=== PATIENT | male | born 1985 | race African-American/Black ===

== ENCOUNTER 2024-07-10 08:36 | Emergency (ER) | payer OTHER ==
[~2024-07-10] VITALS: Ht 177.8 cm; Wt 70.0 kg
[2024-07-10] MEDS: MAALOX PLUS or MAALOX 30 ML PO ONE (08:58)
[2024-07-10 09:04] LABS: Urine Bacteria None Seen /hpf (None Seen)
[2024-07-10 09:07] VITALS: TEMP 98.6
[2024-07-10 09:18] LABS: Basophils # (auto) 0.1 10 ^3/uL (0-0.2); Basophils % (auto) 0.8 % (0.0-2.0); Eosinophils # (auto) 0.5 10 ^3/uL (0-0.8); Eosinophils % (auto) 7.4 % (0.0-7.0); Hematocrit 43.6 % (41.0-53.0); Hemoglobin 14.2 g/dL (13.5-17.5); Lymphocytes # (auto) 1.1 10 ^3/uL (0.4-5.4); Lymphocytes % (auto) 16.7 % (10.0-50.0); Mean Corpuscular Hemoglobin 27.7 pg (28.0-32.0); Mean Corpuscular Hgb Conc. 32.5 g/dL (32.0-36.0); Mean Corpuscular Volume 85.2 fL (80.0-100.0); Monocytes # (auto) 0.4 10 ^3/uL (0-1.3); Monocytes % (auto) 5.4 % (0.0-12.0); Neutrophils # (auto) 4.7 10 ^3/uL (1.6-8.6); Neutrophils % (auto) 69.7 % (37.0-80.0); Platelet Count (auto) 284 10^3/uL (140-450); Red Blood Cells 5.12 10^6/uL (4.5-5.90); Red Cell Distribution Width 14.4 % (11.8-14.3); White Blood Cell 6.8 10^3/uL (4.4-10.8)
[2024-07-10 09:23] LABS: Urine Amorphous Crystal FEW /hpf (None Seen); Urine Blood 1+ /uL (Negative); Urine Clarity Ex.Turbid (Clear); Urine Color Yellow (Yellow); Urine Mucus FEW (None Seen); Urine Protein, UAD Negative (Negative); Urine Specific Gravity 1.019 (1.001-1.035); Urine Squamous Epithelial Cell None Seen /hpf (<5); Urine Urobilinogen Normal (Negative)
[2024-07-10 09:24] LABS: Urine WBC < 1 /HPF (0-3)
--- NOTE | 2024-07-10 09:27 | DVH ---
Procedure: CT CT AB PEL WO CON-NO ORAL OR IV 07/10/2024 08:45 AM Indication: epigastric pain, family history of pancreatic cancer Comparison Study: None Technique: Axial images were obtained and reformatted in coronal and sagittal planes. All CT scans at this medical facility are performed using dose modulation techniques as appropriate to a performed e xam including the following: Automated exposure control was utilized; adjustment of the MA and/or KV according to patient size; and use of iterative reconstruction technique. CT Dose: CTDI volume is 6.7 5 mGy. Dose-length product is 329.75 mGy*cm FINDINGS: Lower Chest: Unremarkable. Hepatobiliary: Liver is normal in size. Few subcentimeter hypodense foci noted in the right and left hepatic lobes that are incompletely evaluated due to small-sized without IV contrast. No intrahepat ic or extrahepatic ductal dilatation. No calcified gallstones. Spleen: Unremarkable. Pancreas: Unremarkable. Adrenal Glands: Unremarkable. tract: The kidneys are normal in size bilaterally without hydronephrosis . Dense measure pyramid t ips and few punctate nonobstructing bilateral renal calculi noted. The urinary bladder is unremarkabl e. GI tract: The stomach is grossly normal in appearance. No evidence of small bowel obstruction. The la rge bowel is unremarkable. The appendix is not visualized. No inflammatory change is noted in the rig ht lower quadrant. Lymphatics: No mesenteric, retroperitoneal or periportal lymphadenopathy. Vasculature: The abdominal aorta is normal in in caliber. Pelvic Organs: Unremarkable Bones/soft tissues: No acute abnormality. Other: None. IMPRESSION: 1. No CT evidence for acute intra-abdominal or intrapelvic process. 2. Findings suggestive of medullary sponge kidney and few tiny, 1-2 mm nonobstructive bilateral renal calculi. No hydronephrosis. 3. Few subcentimeter hypodense hepatic foci probably cysts. Evaluation is limited due to small size and lack of IV contrast. Suggest correlation with ultrasound on a nonemergent basis. 4. No evidence of pancreatitis. No discrete pancreatic lesion this limited unenhanced study.
--- NOTE | 2024-07-10 09:30 | ED.PDOC ---
GI ASSESSMENT HPI Comments 38 year old male brought in by EMS presents to the ED with a chief complaint of intermittent abdominal pain onset 1 month. Patient states he has been experiencing intermittent diffused abdominal pain for the past month, noticed pain worsen last night, described as a sharp, stabbing pain and began experiencing nausea. Patient stopped consuming ETOH about 1 month ago when pain began. He noticed pain worsens with certain foods and drinks. He is concerned due to family history of Pancreatic cancer. Denies PMHx as well as chest pain, shortness of breath, vomiting, diarrhea, headache, dizziness, dysuria, hematuria, fever, chills. No other symptoms or modifying factors present at this time. Chief Complaint: Abdominal Pain Time Seen by MD: 09:02 Primary Care Provider: LORENA Whitehead Notes: Medications, Allergies Allergies: Coded Allergies: NO KNOWN ALLERGIES (Unverified , 07/10/24) Information Source: Patient, Emergency Med Personnel Mode of Arrival: EMS Timing: Months Duration: Intermittent Prehospital treatment: None Quality: Sharp, Stabbing Vomitus: None Severity: Moderate Recent: None Recent Hx of: None Modifying Factors: Nothing Associated sign and symptoms: Nausea, Abdominal Pain Past Medical History PAST MEDICAL HISTORY: Denies Surgical History: Denies all surgeries Family History Family History: Family hx of Cancer Social History Smoker: Non-Smoker Alcohol: Heavy Drugs: Marijuana Lives In: Home Constitutional: denies: chills, diaphoresis, fatigue, fever, malaise, sweats, weakness, others EENTM: denies: blurred vision, double vision, ear bleeding, ear discharge, ear drainage, ear pain, ear ringing, eye pain, eye redness, hearing loss, mouth pain, mouth swelling, nasal discharge, nose bleeding, nose congestion, nose pain, photophobia, tearing, throat pain, throat swelling, voice changes, others Respiratory: denies: cough, hemoptysis, orthopnea, SOB at rest, shortness of breath, SOB with excertion, stridor, wheezing, others Cardiovascular: denies: chest pain, dizzy spells, diaphoresis, Dyspnea on exertion, edema, irregular heart beat, left arm pain, lightheadedness, palpitations, PND, syncope, others Gastrointestinal: reports: abdominal pain, nausea; denies: abdomen distended, blood streaked bowels, constipated, diarrhea, dysphagia, difficulty swallowing, hematemesis, melena, poor appetite, poor fluid intake, rectal bleeding, rectal pain, vomiting, others Genitourinary: denies: burning, dysuria, flank pain, frequency, hematuria, incontinence, penile discharge, penile sore, pain, testicle pain, testicle swelling, urgency, others Neurological: denies: dizziness, fainting, headache, left sided numbness, left sided weakness, numbness, paresthesia, pre-existing deficit, right sided numbness, right sided weakness, seizure, speech problems, tingling, tremors, weakness, others Musculoskeletal: denies: back pain, gout, joint pain, joint swelling, muscle pain, muscle stiffness, neck pain, others Integumetry: denies: bruises, change in color, change in hair/nails, dryness, laceration, lesions, lumps, rash, wounds, others Allergic/Immunocompromised: denies: Difficulty Healing, Frequent Infections, Hives, Itching, others Hematologic/Lymphatic: denies: anemia, blood clots, easy bleeding, easy bruising, swollen glands, others Endocrine: denies: excessive hunger, excessive sweating, excessive thirst, excessive urination, flushing, intolerance to cold, intolerance to heat, unexplained weight gain, unexplained weight loss, others Psychiatric: denies: anxiety, bipolar disorder, depression, hopeless, panic disorder, schizophrenia, sleepless, suicidal, others All Other Systems: Reviewed and Negative Physical Exam General Appearance: No Apparent Distress, Normal HEENT: Normal ENT Inspection, Pharynx Normal, TMs Normal Neck: Full Range of Motion, Non-Tender, Normal, Normal Inspection Respiratory: Chest Non-Tender, Lungs Clear, No Accessory Muscle Use, No Respiratory Distress, Normal Breath Sounds Cardiovascular: No Edema, No JVD, No Murmur, No Gallop, Normal Peripheral Pulses, Regular Rate/Rhythm Breast Exam: Deferred Gastrointestinal: Epigastric (tenderness), No Organomegaly, No Pulsatile Mass, Normal Bowel Sounds, Tenderness (epigastric ) Genitalia: Deferred Pelvic: Deferred Rectal: Deferred Extremities: No calf tenderness, Normal capillary refill, Normal inspection, Normal range of motion, Non-tender, No pedal edema Musculoskeletal : Apperance: Normal Neurologic: Alert, 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 Was a procedure done?: No GI differential Dx Differential Diagnosis: Bowel Obstruction, Cholangitis, Cholecystitis, Constipation, Diverticular disease, Gastritis/PUD, Gastroenteritis, Hernia, Hepatitis, Inflammatory BD, Pancreatitis, Impaction, Mass, Stress Ulcer, Kidney Stone X-Ray, Labs, Meds, VS Vital Signs Date Time Temp Pulse Resp B/P (MAP) Pulse Ox O2 Delivery O2 Flow Rate FiO2 07/10/24 09:35 131/91 07/10/24 09:07 74 18 100 Room Air 07/10/24 09:07 98.6 74 18 131/91 (104) 100 98.6 07/10/24 08:45 98.0 74 18 150/100 (117) 99 98.0 Lab Test 07/10/24 09:03 07/10/24 08:55 Range/Units Urine Color Yellow Yellow Urine Clarity Ex.turbid Clear Urine pH 7.0 5.0-9.0 Urine Specific [place] 1.019 1.001-1.035 Urine Protein Negative Negative Urine Ketones Negative Negative Urine Blood 1+ H Negative /uL Urine Nitrite Negative Negative Urine Bilirubin Negative Negative Urine Urobilinogen Normal Negative mg/dL Urine Leukocyte Esterase Negative Negative /uL Urine RBC 40 0 - 3 /hpf Urine Microscopic WBC < 1 0-3 /HPF Urine Squamous Epithelial Cells None seen <5 /hpf Urine Amorphous Crystals Few None Seen /hpf Urine Bacteria None seen None Seen /hpf Urine Mucus Few None Seen Urine Glucose Normal Normal mg/dL White Blood Count 6.8 4.4-10.8 10^3/uL Red Blood Count 5.12 4.5-5.90 10^6/uL Hemoglobin 14.2 13.5-17.5 g/dL Hematocrit 43.6 41.0-53.0 % Mean Corpuscular Volume 85.2 80.0-100.0 fL Mean Corpuscular Hemoglobin 27.7 L 28.0-32.0 pg Mean Corpuscular Hemoglobin Concent 32.5 32.0-36.0 g/dL Red Cell Distribution Width 14.4 H 11.8-14.3 % Platelet Count 284 140-450 10^3/uL Mean Platelet Volume 7.5 6.9-10.8 fL Neutrophils (%) (Auto) 69.7 37.0-80.0 % Lymphocytes (%) (Auto) 16.7 10.0-50.0 % Monocytes (%) (Auto) 5.4 0.0-12.0 % Eosinophils (%) (Auto) 7.4 H 0.0-7.0 % Basophils (%) (Auto) 0.8 0.0-2.0 % Neutrophils # (Auto) 4.7 1.6-8.6 10 ^3/uL Lymphocytes # (Auto) 1.1 0.4-5.4 10 ^3/uL Monocytes # (Auto) 0.4 0-1.3 10 ^3/uL Eosinophils # (Auto) 0.5 0-0.8 10 ^3/uL Basophils # (Auto) 0.1 0-0.2 10 ^3/uL Nucleated Red Blood Cells 0.0 % Sodium Level 139 136-145 mmol/L Potassium Level 4.3 3.5-5.1 mmol/L Chloride Level 104 98-107 mmol/L Carbon Dioxide Level 30 20-31 mmol/L Anion Gap 5 5-15 Blood Urea Nitrogen < 5 L 9-23 mg/dL Creatinine 0.92 0.700-1.30 mg/dL Glomerular Filtration Rate Calc 109 >90 mL/min BUN/Creatinine Ratio 5.4 L 10.0-20.0 Serum Glucose 89 74-106 mg/dL Calcium Level 10.4 8.7-10.4 mg/dL Total Bilirubin 0.4 0.2-1.0 mg/dL Aspartate Amino Transferase (AST) 22 13-40 U/L Alanine Aminotransferase (ALT) 24 7-40 U/L Alkaline Phosphatase 82 46-116 U/L Total Protein 7.8 5.7-8.2 g/dL Albumin 4.8 3.2-4.8 g/dL Lipase 47 12-53 U/L Current Medications Medications (Trade) Dose Ordered Sig/Tim Route Start Time Stop Time Status Last Admin Al Hydrox/Mg Hydrox/Simethicone (Maalox Plus) 15 ml ONCE ONCE PO 07/10/24 09:00 07/10/24 09:01 DC 07/10/24 08:58 Fentanyl Citrate 12.5 mcg ONCE ONCE IV 07/10/24 09:15 07/10/24 09:16 DC 07/10/24 09:35 [place] [id number] Ph: [phone] DIAGNOSTIC IMAGING Diagnostic Imaging Report : [id number] Signed PATIENT: HENRY MCCARTHY ACCT: [id number] UNIT: [id number] : 1985 LOC: ER ROOM / BED: / AGE / SEX: 38 / M ADM STATUS: REG ER SERVICE [id number] ORDERING PHYSICIAN: LISA NETTLES MD PROCEDURE(s): ABPL - CT AB PEL WO CON-NO ORAL OR IV REASON: epigastric pain, family history of pancreatic cancer ORDER NUMBER(s): [id number], ACCESSION NUMBER(s): [id number] Procedure: CT CT AB PEL WO CON-NO ORAL OR IV 07/10/2024 08:45 AM Indication: epigastric pain, family history of pancreatic cancer Comparison Study: None Technique: Axial images were obtained and reformatted in coronal and sagittal planes. All CT scans at this medical facility are performed using dose modulation techniques as appropriate to a performed exam including the following: Automated exposure control was utilized; adjustment of the MA and/or KV according to patient size; and use of iterative reconstruction technique. CT Dose: CTDI volume is 6.75 mGy. Dose-length product is 329.75 mGy*cm FINDINGS: Lower Chest: Unremarkable. Hepatobiliary: Liver is normal in size. Few subcentimeter hypodense foci noted in the right and left hepatic lobes that are incompletely evaluated due to small-sized without IV contrast. No intrahepatic or extrahepatic ductal dilatation. No calcified gallstones. Spleen: Unremarkable. Pancreas: Unremarkable. Adrenal Glands: Unremarkable. tract: The kidneys are normal in size bilaterally without hydronephrosis . Dense measure pyramid tips and few punctate nonobstructing bilateral renal calculi noted. The urinary bladder is unremarkable. GI tract: The stomach is grossly normal in appearance. No evidence of small bowel obstruction. The large bowel is unremarkable. The appendix is not visualized. No inflammatory change is noted in the right lower quadrant. Lymphatics: No mesenteric, retroperitoneal or periportal lymphadenopathy. Vasculature: The abdominal aorta is normal in in caliber. Pelvic Organs: Unremarkable Bones/soft tissues: No acute abnormality. Other: None. IMPRESSION: 1. No CT evidence for acute intra-abdominal or intrapelvic process. 2. Findings suggestive of medullary sponge kidney and few tiny, 1-2 mm non obstructive bilateral renal calculi. No hydronephrosis. 3. Few subcentimeter hypodense hepatic foci probably cysts. Evaluation is limited due to small size and lack of IV contrast. Suggest correlation with ultrasound on a nonemergent basis. 4. No evidence of pancreatitis. No discrete pancreatic lesion this limited unenhanced study. ATED BY: ALEE COLON MD DICTATED DATE/TIME: 07/10/24923 SIGNED BY: ALEE COLON MD SIGNED DATE/TIME: 07/10/24923 CC: Time of 1ST Reevaluation: 09:32 Reevaluation 1ST: Unchanged Time of 2ND Reevaluation: 10:43 Reevaluation 2ND: Improved Patient Education/Counseling: Diagnosis, Treatment, Prognosis, Need For Follow Up Family Education/Counseling: No Family Present Additional Information The following tests were ordered, and results were reviewed by me: CBC, CMP, LIPASE, CT AB PEL WO CON, UA Additional Information was gathered from interviewing the following independent historians: EMS I reviewed and agreed with the following test results read by other providers: CT AB PEL WO CON I discussed treatment and results with medical personnel and: Patient PT REPORTED A FAMILY HISTORY OF PANCREATIC CANCER AND MORE THAN A MONTH OF EPIGASTRIC PAIN. A CT AND LABS WERE ORDERED AND RESULTS ONLY SHOW MEDULLARY KIDNEY, WITHOUT ANY ACUTE FINDINGS. NO SIGNS OF PANCREATIC CANCER. PT IS STABLE TO FOLLOW UP WITH HIS PCP TOMORROW Departure 1 Departure Time of Disposition: 10:44 Impression: Primary Impression: Abdominal pain Additional Impression: Medullary cystic kidney disease Disposition: HOME / SELF CARE / HOMELESS Condition: Good e-Prescriptions Hydrocodone-Acetaminophen (Hydrocodone Bitartrate/AC 5-325 mg) 1 Tab Tab 1 TAB PO Q12HP PRN for 3 Days, #6 TAB Prov: LISA NETTLES MD 07/10/24 Discharged With: Self Critical Care Note Critical Care Time?: No Stability Stability form required: No I personally scribed for LISA NETTLES MD ([email or web address]) on 07/10/24 at 09:30. Electronically submitted by Michela Rivera ([email or web address]). I personally scribed for LISA NETTLES MD ([email or web address]) on 07/10/24 at 10:09. Electronically submitted by Michela Rivera ([email or web address]). LISA NETTLES MD Jul 10, 2024 09:30
[2024-07-10] MEDS: fentaNYL CITRATE 100 MCG/2 ML VL IV ONE (09:35)
[2024-07-10 09:36] LABS: Alanine Aminotransferase 24 U/L (7-40); Alkaline Phosphatase 82 U/L (46-116); Anion Gap 5 (5-15); Carbon Dioxide 30 mmol/L (20-31); Chloride 104 mmol/L (98-107); Glucose 89 mg/dL (74-106); Potassium 4.3 mmol/L (3.5-5.1); Sodium 139 mmol/L (136-145); Total Protein 7.8 g/dL (5.7-8.2)
[2024-07-10 09:37] LABS: Albumin 4.8 g/dL (3.2-4.8); Aspartate Aminotransferase 22 U/L (13-40); BUN/Creatinine Ratio 5.4 (10.0-20.0); Bilirubin, Total 0.4 mg/dL (0.2-1.0); Blood Urea Nitrogen < 5 mg/dL (9-23); Calcium 10.4 mg/dL (8.7-10.4)
[2024-07-10 10:12] LABS: Lipase 47 U/L (12-53)
[2024-07-10] MEDS ORDERED: HYDR-4902 PO (10:45)
[2024-07-10] MEDS: KETOROLAC TROMETH 30 MG/ML 1ML VIAL IV ONE (10:50)
[2024-07-10 11:01] VITALS: BP 146/106; PULSE 67; RESP 16; O2SAT 100
== END 2024-07-10 11:05 | disposition home or self-care (01) ==
LOC: EDSEX 08:36 → EDBD 08:36 → ER 08:36
DX: Q61.5 Medullary cystic kidney (principal); R10.84 Generalized abdominal pain
CPT/HCPCS: 36415; 74176; 80053; 81001; 83690; 85025; 96374; 96375; 99285; J1885; J3010

== ENCOUNTER 2024-09-22 06:14 | Inpatient (IN) | payer OTHER ==
[~2024-09-22] VITALS: Ht 190.5 cm; Wt 71.2 kg
[~2024-09-22 06:14] MED LIST: HYDR-4902 PO
--- NOTE | 2024-09-22 06:50 | ED.PDOC ---
HPI Comments 38 y.o male presents to the ED for a chief complaint of substernal chest pain associated with nausea and vomiting that started one day ago. Patient reports being seen at [facility] yesterday, was offloaded by EMS and eloped due to wait time. Patient then presented to this ED earlier this morning for same complaint and eloped once again. Patient returned home, states vomiting and chest pain has been persistent with no alleviating factors. Patient has no pain radiating, fever, chills, leg swelling, back/abdominal pain or SOB. Patient admits to tobacco, marijuana and alcohol use. Chief Complaint: Nausea/Vomiting Time Seen by MD: 06:28 Primary Care Provider: LORENA Whitehead Notes: Nurses Notes, Medications, Allergies Allergies: Coded Allergies: NO KNOWN ALLERGIES (Unverified , 07/10/24) Home Meds Active Scripts Hydrocodone-Acetaminophen (Hydrocodone Bitartrate/AC 5-325 mg) 1 Tab Tab, 1 TAB PO Q12HP PRN for 3 Days, #6 TAB Prov:LISA NETTLES MD 07/10/24 Information Source: Patient Mode of Arrival: Ambulatory Severity: Moderate Timing: Days (1) Duration: Since onset Location: Substernal Radiation: No Radiation Quality: Sharp Onset: At Rest Cardiac Risk Factors: Smoker PE Risk Factors: None History of: None Modifying Factors: Nothing Associated Signs and Symptoms: N/V Past Medical History PAST MEDICAL HISTORY: Denies Surgical History: Denies all surgeries Family History Family History: Family hx of Cancer Social History Smoker: Cigarettes, Less Than 1 Pack/Day Alcohol: Heavy Drugs: Marijuana Lives In: Home Constitutional: denies: chills, diaphoresis, fatigue, fever, malaise, sweats, weakness, others EENTM: denies: blurred vision, double vision, ear bleeding, ear discharge, ear drainage, ear pain, ear ringing, eye pain, eye redness, hearing loss, mouth pain, mouth swelling, nasal discharge, nose bleeding, nose congestion, nose frank n, photophobia, tearing, throat pain, throat swelling, voice changes, others Respiratory: denies: cough, hemoptysis, orthopnea, SOB at rest, shortness of breath, SOB with excertion, stridor, wheezing, others Cardiovascular: reports: chest pain; denies: dizzy spells, diaphoresis, Dyspnea on exertion, edema, irregular heart beat, left arm pain, lightheadedness, palpitations, PND, syncope, others Gastrointestinal: reports: hematemesis, nausea, vomiting; denies: abdomen distended, abdominal pain, blood streaked bowels, constipated, diarrhea, dysphagia, difficulty swallowing, melena, poor appetite, poor fluid intake, rectal bleeding, rectal pain, others Genitourinary: denies: burning, dysuria, flank pain, frequency, hematuria, incontinence, penile discharge, penile sore, pain, testicle pain, testicle swelling, urgency, others Neurological: denies: dizziness, fainting, headache, left sided numbness, left sided weakness, numbness, paresthesia, pre-existing deficit, right sided numbness, right sided weakness, seizure, speech problems, tingling, tremors, weakness, others Musculoskeletal: denies: back pain, gout, joint pain, joint swelling, muscle pain, muscle stiffness, neck pain, others Integumetry: denies: bruises, change in color, change in hair/nails, dryness, laceration, lesions, lumps, rash, wounds, others Allergic/Immunocompromised: denies: Difficulty Healing, Frequent Infections, Hi ves, Itching, others Hematologic/Lymphatic: denies: anemia, blood clots, easy bleeding, easy bruising, swollen glands, others Endocrine: denies: excessive hunger, excessive sweating, excessive thirst, excessive urination, flushing, intolerance to cold, intolerance to heat, unexplained weight gain, unexplained weight loss, others Psychiatric: denies: anxiety, bipolar disorder, depression, hopeless, panic disorder, schizophrenia, sleepless, suicidal, others All Other Systems: Reviewed and Negative Physical Exam General Appearance: Moderate Distress HEENT: Normal ENT Inspection, Pharynx Normal, TMs Normal Neck: Full Range of Motion, Non-Tender, Normal, Normal Inspection Respiratory: Chest Non-Tender, Lungs Clear, No Accessory Muscle Use, No Respiratory Distress, Normal Breath Sounds Cardiovascular: No Edema, No JVD, No Murmur, No Gallop, Normal Peripheral Pulses, Regular Rate/Rhythm Breast Exam: Deferred Gastrointestinal: No Organomegaly, Non Tender, No Pulsatile Mass, Normal Bowel Sounds, Soft Genitalia: Deferred Pelvic: Deferred Rectal: Deferred Extremities: No calf tenderness, Normal capillary refill, Normal inspection, Normal range of motion, Non-tender, No pedal edema Musculoskeletal : Apperance: Normal Neurologic: Alert, 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 Was a procedure done?: No CP Differential Dx Differential Diagnosis: A-fib, A-Flutter, Angina, Anxiety / Panic Attack, Atrial Dysrhythmia, Electrolyte Disorder, N/A Differential Diagnosis: Angina, Chest Wall Pain, Costochondritis, Esophageal reflux/spasm, Pericarditis X-Ray, Labs, Meds, VS Vital Signs Date Time Temp Pulse Resp B/P (MAP) Pulse Ox O2 Delivery O2 Flow Rate FiO2 09/22/24 09:38 100 18 163/103 (123) 97 09/22/24 09:38 100 18 98 Room Air 09/22/24 06:44 98.9 94 18 127/93 (104) 97 98.9 Lab Test 09/22/24 06:51 Range/Units White Blood Count 11.9 H 4.4-10.8 10^3/uL Red Blood Count 5.73 4.5-5.90 10^6/uL Hemoglobin 15.9 13.5-17.5 g/dL Hematocrit 48.1 41.0-53.0 % Mean Corpuscular Volume 83.9 80.0-100.0 fL Mean Corpuscular Hemoglobin 27.7 L 28.0-32.0 pg Mean Corpuscular Hemoglobin Concent 33.0 32.0-36.0 g/dL Red Cell Distribution Width 15.6 H 11.8-14.3 % Platelet Count 314 140-450 10^3/uL Mean Platelet Volume 7.9 6.9-10.8 fL Neutrophils (%) (Auto) 79.1 37.0-80.0 % Lymphocytes (%) (Auto) 12.2 10.0-50.0 % Monocytes (%) (Auto) 8.5 0.0-12.0 % Eosinophils (%) (Auto) 0.1 0.0-7.0 % Basophils (%) (Auto) 0.1 0.0-2.0 % Neutrophils # (Auto) 9.4 H 1.6-8.6 10 ^3/uL Lymphocytes # (Auto) 1.4 0.4-5.4 10 ^3/uL Monocytes # (Auto) 1.0 0-1.3 10 ^3/uL Eosinophils # (Auto) 0 0-0.8 10 ^3/uL Basophils # (Auto) 0 0-0.2 10 ^3/uL Nucleated Red Blood Cells 0.1 % Sodium Level 141 136-145 mmol/L Potassium Level 3.4 L 3.5-5.1 mmol/L Chloride Level 102 98-107 mmol/L Carbon Dioxide Level 27 20-31 mmol/L Anion Gap 12 5-15 Blood Urea Nitrogen 11 9-23 mg/dL Creatinine 1.11 0.700-1.30 mg/dL Glomerular Filtration Rate Calc 87 >90 mL/min BUN/Creatinine Ratio 9.9 L 10.0-20.0 Serum Glucose 136 H 74-106 mg/dL Calcium Level 11.3 H 8.7-10.4 mg/dL Troponin I High Sensitivity 3 L </=54 ng/L Patient alert. Complaining of coughing up blood. Vitals stable. Answering questions. Cardiac marker within normal limits. Blood sugar slightly elevated. Potassium is low. Establish intravenous access. Was given fluids. WBC slightly elevated. He has a anemia. He does smoke cigarettes. Counseled patient on effects of smoking cigarettes for 15 minutes. Explained to the patient that he will be admitted for possible endoscope. Continue monitoring. EKG reviewed does not show any acute changes. CT ABDOMEN AND PELVIS WITHOUT CONTRAST CLINICAL HISTORY: pain TECHNIQUE: Multiple contiguous axial images of the abdomen and pelvis without intravenous contrast. The images were reformatted degenerate coronal and sagittal reconstructions. All CT scans at this medical facility are performed using dose modulation techniques as appropriate to a performed exam including the following:Automated exposure control was utilized; adjustment of the MA and/or KV according to patient size; and use of iterative reconstruction technique. Radiation Dose Information: CT Dose: CTDI volume is 6 mGy. Dose-length product is 277 mGy*cm Comparison: CT CT AB PEL WO CON-NO ORAL OR IV on DOS: 07/10/24 FINDINGS: Evaluation of the abdomen and pelvis is limited without intravenous contrast. The liver, gallbladder, pancreas, kidneys, adrenal glands, and spleen grossly appear within normal limits. There is no gross evidence of abdominal lymphadenopathy. There is no free fluid or free air. The stomach grossly appears unremarkable. The small and large bowel loops demonstrate normal caliber and distribution. The appendix is not seen in the right lower quadrant abdomen. There are no secondary signs of acute appendicitis. The abdominal aorta and IVC appear within normal limits. Bladder is decompressed limiting evaluation. Pelvic organ appears within normal limits. There is no gross evidence of a pelvic mass. There is no free fluid collection. Lung bases are clear. There is no acute osseous abnormality. IMPRESSION: 1. There is no acute process in the abdomen and pelvis. HS:Y T RADIOGRAPH Indication: sob Technique: Single frontal view of the chest was obtained Comparison: None FINDINGS: Lines and Tubes: None Lungs: No focal consolidation. Pleura: No effusion. No pneumothorax. Cardiomediastinal contours: Unremarkable Bones: No acute osseous abnormality. IMPRESSION: 1. No acute cardiopulmonary disease. ATED BY: AMIE AQUINO MD Time of 1ST Reevaluation: 06:46 Reevaluation 1ST: Unchanged Patient Education/Counseling: Diagnosis, Treatment, Prognosis Family Education/Counseling: No Family Present Departure 1 Departure Time of Disposition: 08:16 Impression: Primary Impression: Pneumonitis Additional Impressions: Uncontrolled diabetes mellitus Qualified Codes: E13.65 - Other specified diabetes mellitus with hyperglycemia Hypokalemia GI bleed Qualified Codes: K92.2 - Gastrointestinal hemorrhage, unspecified Disposition: ADMITTED INPATIENT Admit to: Med Surg Condition: Guarded Critical Care Note Critical Care Time?: Yes (90 min-critical care time only) Critical care comment: Monitor for any bleeding Stability Stability form required: No Heart Score Heart Score: Heart Score Response (Comments) Value History Slightly Suspicious 0 EKG Normal 0 Age <45 0 Risk Factors No known risk factors 0 Troponin Normal limit 0 Total 0 I personally scribed for PAM PHILIP MD ([email or web address]) on 09/22/24 at 06:49. Electronically submitted by Katie Tineo ([email or web address]). I personally scribed for PAM PHILIP MD ([email or web address]) on 09/22/24 at 09:44. Electronically submitted by Katie Tineo ([email or web address]). PAM PHILIP MD Sep 22, 2024 06:49
--- NOTE | 2024-09-22 07:16 | DVH ---
CHEST RADIOGRAPH Indication: sob Technique: Single frontal view of the chest was obtained Comparison: None FINDINGS: Lines and Tubes: None Lungs: No focal consolidation. Pleura: No effusion. No pneumothorax. Cardiomediastinal contours: Unremarkable Bones: No acute osseous abnormality. IMPRESSION: 1. No acute cardiopulmonary disease.
[2024-09-22 07:20] LABS: Basophils # (auto) 0 10 ^3/uL (0-0.2); Basophils % (auto) 0.1 % (0.0-2.0); Eosinophils # (auto) 0 10 ^3/uL (0-0.8); Eosinophils % (auto) 0.1 % (0.0-7.0); Hematocrit 48.1 % (41.0-53.0); Hemoglobin 15.9 g/dL (13.5-17.5); Lymphocytes # (auto) 1.4 10 ^3/uL (0.4-5.4); Lymphocytes % (auto) 12.2 % (10.0-50.0); Mean Corpuscular Hemoglobin 27.7 pg (28.0-32.0); Mean Corpuscular Volume 83.9 fL (80.0-100.0); Monocytes % (auto) 8.5 % (0.0-12.0); Neutrophils # (auto) 9.4 10 ^3/uL (1.6-8.6); Neutrophils % (auto) 79.1 % (37.0-80.0); Nucleated Red Blood Cells % 0.1 %; Platelet Count (auto) 314 10^3/uL (140-450); Red Blood Cells 5.73 10^6/uL (4.5-5.90); Red Cell Distribution Width 15.6 % (11.8-14.3); White Blood Cell 11.9 10^3/uL (4.4-10.8)
[2024-09-22 07:25] LABS: Chloride 102 mmol/L (98-107); Sodium 141 mmol/L (136-145)
[2024-09-22 07:26] LABS: Anion Gap 12 (5-15); Carbon Dioxide 27 mmol/L (20-31)
[2024-09-22 07:31] LABS: BUN/Creatinine Ratio 9.9 (10.0-20.0); Blood Urea Nitrogen 11 mg/dL (9-23)
[2024-09-22 07:32] LABS: Calcium 11.3 mg/dL (8.7-10.4); Glucose 136 mg/dL (74-106); Potassium 3.4 mmol/L (3.5-5.1)
--- NOTE | 2024-09-22 09:24 | DVH ---
CT ABDOMEN AND PELVIS WITHOUT CONTRAST CLINICAL HISTORY: pain TECHNIQUE: Multiple contiguous axial images of the abdomen and pelvis without intravenous contrast. T he images were reformatted degenerate coronal and sagittal reconstructions. All CT scans at this medical facility are performed using dose modulation techniques as appropriate t o a performed exam including the following:Automated exposure control was utilized; adjustment of the MA and/or KV according to patient size; and use of iterative reconstruction technique. Radiation Dose Information: CT Dose: CTDI volume is 6 mGy. Dose-length product is 277 mGy*cm Comparison: CT CT AB PEL WO CON-NO ORAL OR IV on DOS: 07/10/24 FINDINGS: Evaluation of the abdomen and pelvis is limited without intravenous contrast. The liver, gallbladder, pancreas, kidneys, adrenal glands, and spleen grossly appear within normal limits. There is no gross evidence of abdominal lymphadenopathy. There is no free fluid or free air. The stomach grossly appears unremarkable. The small and large bowel loops demonstrate normal caliber and distribution. The appendix is not seen in the right lower quadrant abdomen. There are no seconda ry signs of acute appendicitis. The abdominal aorta and IVC appear within normal limits. Bladder is decompressed limiting evaluation. Pelvic organ appears within normal limits. There is no gross evidence of a pelvic mass. There is no free fluid collection. Lung bases are clear. There is no acute osseous abnormality. IMPRESSION: 1. There is no acute process in the abdomen and pelvis. HS:Y
[2024-09-22 10:00] VITALS: PULSE 87; RESP 13; O2SAT 99
[2024-09-22] MEDS ORDERED: NITROGLYCERIN 0.4 MG SL TAB SL PRN ×2 (10:00)
[2024-09-22] MEDS ORDERED: MORPHINE SULFATE INJ 2 MG/ml SYRG IV PRN (10:00)
[2024-09-22] MEDS ORDERED: MORPHINE SULFATE 4 MG/ML SYR/VIAL IV PRN (10:00)
[2024-09-22] MEDS: POTASSIUM CHL 20 Meq TABLET PO ONE (10:02)
--- NOTE | 2024-09-22 10:33 | DVHHP2 ---
History of Present Illness Reason for Visit: Chest pain with nausea and vomiting History of Present Illness Renu Turner is a 38-year-old male with past medical history of eczema and psoriasis who presents to the ED with chest pain, nausea, and vomiting that started since Friday night. Patient states that the pain is 8/10 stabbing and constant like. 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 Patient also reports [place] [facility] [place] but was waiting too long and decided to elope. Patient denies any recent trauma, recent sick contacts, shortness of breath, fever, chills, lightheadedness, weakness, dizziness, or abdominal pain. Past Medical History Eczema Psoriasis Past Surgical History: None Family History: Hypertension, Other (Mom with diabetes and dad ) Smoke: <1 pack per day (Cigar) ALCOHOL: occassional Drugs: Marijuana Lives: with Family Domestic Violence: Neg Review of Systems Cardiovascular: Chest Pain Gastrointestinal: Nausea, Vomiting, Other (Hematemesis) Allergies: Coded Allergies: NO KNOWN ALLERGIES (Unverified , 07/10/24) Exam Vital Signs Vital Signs Date Time Temp Pulse Resp B/P (MAP) Pulse Ox O2 Delivery O2 Flow Rate FiO2 09/22/24 09:38 100 18 163/103 (123) 97 09/22/24 09:38 Room Air 09/22/24 06:44 98.9 98.9 General Appearance: Alert, Oriented X3, Cooperative, No acute distress HEENT: Atraumatic, PERRLA, EOMI, Mucous membr. moist/pink Respiratory: Clear to auscultation, Normal air movement Cardiovascular: Regular rate, Normal S1, Normal S2, No murmurs Abdominal: Normal bowel sounds, Soft Extremities: No cyanosis, No edema, Normal pulses Skin: No significant lesion Neuro: Normal gait, Normal speech, Strength at 5/5 X4 ext, Normal tone, Sensation intact Psych/Mental Status: Mental status NL, Mood NL Labs/Xrays Labs Test 09/22/24 06:51 Range/Units White Blood Count 11.9 H 4.4-10.8 10^3/uL Red Blood Count 5.73 4.5-5.90 10^6/uL Hemoglobin 15.9 13.5-17.5 g/dL Hematocrit 48.1 41.0-53.0 % Mean Corpuscular Volume 83.9 80.0-100.0 fL Mean Corpuscular Hemoglobin 27.7 L 28.0-32.0 pg Mean Corpuscular Hemoglobin Concent 33.0 32.0-36.0 g/dL Red Cell Distribution Width 15.6 H 11.8-14.3 % Platelet Count 314 140-450 10^3/uL Mean Platelet Volume 7.9 6.9-10.8 fL Neutrophils (%) (Auto) 79.1 37.0-80.0 % Lymphocytes (%) (Auto) 12.2 10.0-50.0 % Monocytes (%) (Auto) 8.5 0.0-12.0 % Eosinophils (%) (Auto) 0.1 0.0-7.0 % Basophils (%) (Auto) 0.1 0.0-2.0 % Neutrophils # (Auto) 9.4 H 1.6-8.6 10 ^3/uL Lymphocytes # (Auto) 1.4 0.4-5.4 10 ^3/uL Monocytes # (Auto) 1.0 0-1.3 10 ^3/uL Eosinophils # (Auto) 0 0-0.8 10 ^3/uL Basophils # (Auto) 0 0-0.2 10 ^3/uL Nucleated Red Blood Cells 0.1 % Sodium Level 141 136-145 mmol/L Potassium Level 3.4 L 3.5-5.1 mmol/L Chloride Level 102 98-107 mmol/L Carbon Dioxide Level 27 20-31 mmol/L Anion Gap 12 5-15 Blood Urea Nitrogen 11 9-23 mg/dL Creatinine 1.11 0.700-1.30 mg/dL Glomerular Filtration Rate Calc 87 >90 mL/min BUN/Creatinine Ratio 9.9 L 10.0-20.0 Serum Glucose 136 H 74-106 mg/dL Calcium Level 11.3 H 8.7-10.4 mg/dL Troponin I High Sensitivity 3 L </=54 ng/L CT ABDOMEN AND PELVIS WITHOUT CONTRAST CLINICAL HISTORY: pain TECHNIQUE: Multiple contiguous axial images of the abdomen and pelvis without intravenous contrast. The images were reformatted degenerate coronal and sagittal reconstructions. All CT scans at this medical facility are performed using dose modulation techniques as appropriate to a performed exam including the following:Automated exposure control was utilized; adjustment of the MA and/or KV according to patient size; and use of iterative reconstruction technique. Radiation Dose Information: CT Dose: CTDI volume is 6 mGy. Dose-length product is 277 mGy*cm Comparison: CT CT AB PEL WO CON-NO ORAL OR IV on DOS: 07/10/24 FINDINGS: Evaluation of the abdomen and pelvis is limited without intravenous contrast. The liver, gallbladder, pancreas, kidneys, adrenal glands, and spleen grossly appear within normal limits. There is no gross evidence of abdominal lymphadenopathy. There is no free fluid or free air. The stomach grossly appears unremarkable. The small and large bowel loops demonstrate normal caliber and distribution. The appendix is not seen in the right lower quadrant abdomen. There are no secondary signs of acute appendicitis. The abdominal aorta and IVC appear within normal limits. Bladder is decompressed limiting evaluation. Pelvic organ appears within normal limits. There is no gross evidence of a pelvic mass. There is no free fluid collection. Lung bases are clear. There is no acute osseous abnormality. IMPRESSION: 1. There is no acute process in the abdomen and pelvis. CHEST RADIOGRAPH Indication: sob Technique: Single frontal view of the chest was obtained Comparison: None FINDINGS: Lines and Tubes: None Lungs: No focal consolidation. Pleura: No effusion. No pneumothorax. Cardiomediastinal contours: Unremarkable Bones: No acute osseous abnormality. IMPRESSION: 1. No acute cardiopulmonary disease. Assessment/Plan Assessment/Plan Assessment Chest pain rule out ACS likely due to substance abuse Tobacco use Marijuana use Alcohol use Leukocytosis Hypokalemia History of asthma History of psoriasis Plan Admit to [facility] IV antibiotics-Zosyn CT abdomen and pelvis Stool OB UA UDS Echo ordered TSH Lipid panel A1c Mag level Mag replaced Diet Per patient no home medications that he takes aside from Dupixent injectables once every 2 weeks DVT prophylaxis-not indicated patient ambulating PUD prophylaxis-not indicated no history of GERD or GI bleed Discussed plan of care with patient and nurse Counseled patient on cessation of alcohol, substance, and marijuana use Plan discussed with: Patient My Orders Orders - NEMO MINA COMPO CASTER Procedure Category Date Status Time Ct Ab Pel Wo Con-No CT 09/22/24 Resulted Oral Or Iv 08:43 Stool Occult Blood LAB 09/22/24 Logged 08:43 Urinalysis LAB 09/22/24 Logged 08:43 Drug Screen LAB 09/22/24 Logged 08:43 Date of Service: Sep 22, 2024 Billing Provider: NEMO MINA Common Visit Codes: [id number] INP/OBS CARE (HIGH) NEMO MINA Sep 22, 2024 10:33
[2024-09-22 10:53] VITALS: BP 125/72; PULSE 89; RESP 16; TEMP 97.6; O2SAT 98
[2024-09-22] MEDS: PIPERACILLIN-TAZOB 3.375GM 100 ML IV SCH (11:19)
[2024-09-22] MEDS: ASPirin 81 mg TAB PO SCH (11:20)
[2024-09-22] MEDS: MAGNESIUM SULFATE 1GM/100ML 100 ML IV ONE (11:26)
[2024-09-22 12:15] LABS: Urine Bacteria FEW /hpf (None Seen); Urine Blood TRACE /uL (Negative); Urine Clarity Turbid (Clear); Urine Color Yellow (Yellow); Urine Mucus MODERATE (None Seen); Urine Protein, UAD 2+ (Negative); Urine Specific Gravity 1.039 (1.001-1.035); Urine Squamous Epithelial Cell FEW /hpf (<5); Urine Urobilinogen 2 mg/dL (Negative); Urine WBC 4 /HPF (0-3)
[2024-09-22 12:19] VITALS: BP 111/74; PULSE 75; RESP 14; TEMP 97.9; O2SAT 100
[2024-09-22 12:24] LABS: Amphetamine Screen, Urine Neg (NEGATIVE); Cannabinoid Screen, Urine Pos (NEGATIVE)
[2024-09-22 12:30] LABS: Barbiturate Scree,Urine Neg (NEGATIVE); Benzodiazephine Screen, Urine Neg (NEGATIVE); Cocaine Screen, Urine Neg (NEGATIVE); Opiate Scree,Urine Neg (NEGATIVE); Phencyclidine Screen, Urine Neg (NEGATIVE)
[2024-09-22] MEDS: ACETAMINOPHEN 325 MG TAB PO PRN (17:00)
[2024-09-22 20:00] VITALS: PULSE 63; PULSE 74; RESP 18; O2SAT 98
[2024-09-22 21:00] VITALS: BP_SYST 145; BP_SYST 153; BP_DIAS 104; BP_DIAS 95; PULSE 63; RESP 18; TEMP 98.6; O2SAT 98
[2024-09-22] MEDS: ATORVASTATIN 20 MG TAB PO SCH (21:33)
[2024-09-22] MEDS: HYDROcodone-ACET 5/325MG TAB PO PRN (21:48)
[2024-09-22] MEDS: ONDANSETRON HCL 4 MG/2 ML VIAL IV PRN (22:00)
[2024-09-23 01:00] VITALS: BP 139/92; PULSE 61; RESP 17; TEMP 98.6; O2SAT 100
[2024-09-23 05:00] VITALS: BP_SYST 136; BP_SYST 158; BP_DIAS 89; BP_DIAS 99; PULSE 62; RESP 18; TEMP 97.8; O2SAT 97
[2024-09-23 07:00] LABS: Basophils # (auto) 0 10 ^3/uL (0-0.2); Basophils % (auto) 0.4 % (0.0-2.0); Eosinophils # (auto) 0 10 ^3/uL (0-0.8); Eosinophils % (auto) 0.3 % (0.0-7.0); Hematocrit 47.7 % (41.0-53.0); Hemoglobin 16.1 g/dL (13.5-17.5); Lymphocytes # (auto) 1.6 10 ^3/uL (0.4-5.4); Lymphocytes % (auto) 16.4 % (10.0-50.0); Mean Corpuscular Hemoglobin 28.3 pg (28.0-32.0); Mean Corpuscular Hgb Conc. 33.7 g/dL (32.0-36.0); Mean Corpuscular Volume 83.9 fL (80.0-100.0); Monocytes # (auto) 0.7 10 ^3/uL (0-1.3); Monocytes % (auto) 7.1 % (0.0-12.0); Neutrophils # (auto) 7.4 10 ^3/uL (1.6-8.6); Neutrophils % (auto) 75.8 % (37.0-80.0); Nucleated Red Blood Cells % 0.1 %; Platelet Count (auto) 270 10^3/uL (140-450); Red Blood Cells 5.69 10^6/uL (4.5-5.90); Red Cell Distribution Width 15.2 % (11.8-14.3); White Blood Cell 9.7 10^3/uL (4.4-10.8)
[2024-09-23 07:13] LABS: Chloride 102 mmol/L (98-107); Potassium 3.7 mmol/L (3.5-5.1); Sodium 138 mmol/L (136-145)
[2024-09-23 07:14] LABS: Anion Gap 7 (5-15); Carbon Dioxide 29 mmol/L (20-31)
[2024-09-23 07:19] LABS: BUN/Creatinine Ratio 7.4 (10.0-20.0); Triglycerides 101 mg/dL (< 150)
[2024-09-23 07:20] LABS: LDL Cholesterol 85 mg/dL (< 100)
[2024-09-23 07:21] LABS: Cholesterol 165 mg/dL (< 200)
[2024-09-23 07:29] LABS: Blood Urea Nitrogen 7 mg/dL (9-23); Calcium 10.6 mg/dL (8.7-10.4); Glucose 107 mg/dL (74-106); HDL Cholesterol 60 mg/dL (40-59)
[2024-09-23 08:00] VITALS: PULSE 57
[2024-09-23 09:00] VITALS: BP 145/92; PULSE 84; RESP 17; TEMP 98.5; O2SAT 98
[2024-09-23 13:00] VITALS: BP 120/87; PULSE 72; RESP 17; TEMP 98.4; O2SAT 99
--- NOTE | 2024-09-23 15:40 | DVHSR ---
APPROVED REPORT EXAM: Two-dimensional and M-mode echocardiogram with Doppler and color Doppler. Blood Pressure: 158/99 mmHg INDICATION Chest Pain RISK FACTORS Height: 6'3", Weight: 153 DIMENSIONS LVDd5.0 (3.8-5.7cm)LA (2D)3.8 (1.9-4.0cm)Aortic Root2.7 (2.0-3.7cm) LVDs3.4 (2.5-4.0cm)LA (MM) (1.9-4.0cm)Aortic Cusp Exc2.1 (1.5-2.0cm) EF (%) 60.0 (55-70%)Rt. Atrium4.2 (1.9-4.0cm)Asc. Aorta3.0 cm IVSd0.8 (0.7-1.1cm)RV (D)3.7 (1.8-2.4cm) PWd0.9 (0.7-1.1cm) Mitral Valve MitralMitral Stenosis E wave0.71m/sMV Mean GR.mmHg A wave0.54m/sMV Peak GR.mmHg E/A ratio1.32D MVAcm2 DECEL [id number] 1/2 Timems Aortic Valve Aortic ValveAortic Stenosis V11.13m/Fadi Mean GR.4mmHg V21.38m/Fadi Peak GR.8mmHg LVOT Diameter2.2 (1.8-2.4cm)Doppler AVA3.11cm2 Pulmonic Valve V21.13m/s Conclusion lvef 60% by visual estimate normal rv function normal atria no severe valve abnormaliteis noted
--- NOTE | 2024-09-23 15:57 | DVHDS2 ---
Discharge Summary Date of Admission Sep 22, 2024 at 10:00 Date of Discharge: Sep 23, 2024 Labs/Diagnostic Data: Laboratory Results Test 09/23/24 06:30 09/22/24 12:01 09/22/24 10:34 09/22/24 06:51 White Blood Count 9.7 10^3/uL (4.4-10.8) Red Blood Count 5.69 10^6/uL (4.5-5.90) Hemoglobin 16.1 g/dL (13.5-17.5) Hematocrit 47.7 % (41.0-53.0) Mean Corpuscular Volume 83.9 fL (80.0-100.0) Mean Corpuscular Hemoglobin 28.3 pg (28.0-32.0) Mean Corpuscular Hemoglobin Concent 33.7 g/dL (32.0-36.0) Red Cell Distribution Width 15.2 % (11.8-14.3) Platelet Count 270 10^3/uL (140-450) Mean Platelet Volume 7.6 fL (6.9-10.8) Neutrophils (%) (Auto) 75.8 % (37.0-80.0) Lymphocytes (%) (Auto) 16.4 % (10.0-50.0) Monocytes (%) (Auto) 7.1 % (0.0-12.0) Eosinophils (%) (Auto) 0.3 % (0.0-7.0) Basophils (%) (Auto) 0.4 % (0.0-2.0) Neutrophils # (Auto) 7.4 10 ^3/uL (1.6-8.6) Lymphocytes # (Auto) 1.6 10 ^3/uL (0.4-5.4) Monocytes # (Auto) 0.7 10 ^3/uL (0-1.3) Eosinophils # (Auto) 0 10 ^3/uL (0-0.8) Basophils # (Auto) 0 10 ^3/uL (0-0.2) Nucleated Red Blood Cells 0.1 % Sodium Level 138 mmol/L (136-145) Potassium Level 3.7 mmol/L (3.5-5.1) Chloride Level 102 mmol/L (98-107) Carbon Dioxide Level 29 mmol/L (20-31) Anion Gap 7 (5-15) Blood Urea Nitrogen 7 mg/dL (9-23) Creatinine 0.94 mg/dL (0.700-1.30) Glomerular Filtration Rate Calc 106 mL/min (>90) BUN/Creatinine Ratio 7.4 (10.0-20.0) Serum Glucose 107 mg/dL (74-106) Calcium Level 10.6 mg/dL (8.7-10.4) Magnesium Level 2.0 mg/dL (1.6-2.6) Triglycerides Level 101 mg/dL (< 150) Cholesterol Level 165 mg/dL (< 200) LDL Cholesterol 85 mg/dL (< 100) HDL Cholesterol 60 mg/dL (40-59) Urine Color Yellow (Yellow) Urine Clarity Turbid (Clear) Urine pH 6.0 (5.0-9.0) Urine Specific [place] 1.039 (1.001-1.035) Urine Protein 2+ (Negative) Urine Ketones Trace (Negative) Urine Blood Trace /uL (Negative) Urine Nitrite Negative (Negative) Urine Bilirubin Negative (Negative) Urine Urobilinogen 2 mg/dL (Negative) Urine Leukocyte Esterase Negative /uL (Negative) Urine RBC 3 /hpf (0 - 3) Urine Microscopic WBC 4 /HPF (0-3) Urine Squamous Epithelial Cells Few /hpf (<5) Urine Bacteria Few /hpf (None Seen) Urine Mucus Moderate (None Seen) Urine Glucose Trace mg/dL (Normal) Urine Opiates Screen Neg (NEGATIVE) Urine Fentanyl Screen Neg (NEGATIVE) Urine Barbiturates Screen Neg (NEGATIVE) Urine Phencyclidine Screen Neg (NEGATIVE) Urine Amphetamines Screen Neg (NEGATIVE) Urine Benzodiazepines Screen Neg (NEGATIVE) Urine Cocaine Screen Neg (NEGATIVE) Urine Cannabinoids Screen Pos (NEGATIVE) Troponin I High Sensitivity < 3 ng/L (</=54) Hemoglobin A1c 4.9 % A1C (<5.7) Thyroid Stimulating Hormone (TSH) 0.14 uIU/mL (0.55-4.78) Other Laboratory Tests 09/23/24 06:30 Brief Hx & Hospital Course: Renu Turner is a 38-year-old male with past medical history of eczema and psoriasis who presents to the ED with chest pain, nausea, and vomiting that started since Kai night. Patient states that the pain is 8/10 stabbing and constant like. 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 Patient also reports that he was at [facility] yesterday was transported by EMS but was waiting too long and decided to elope. Patient denies any recent trauma, recent sick contacts, shortness of breath, fever, chills, lightheadedness, weakness, dizziness, or abdominal pain. Chest pain resolved and echo was pending, he left ama Condition at Discharge: Good Final Diagnosis/Problems List chest pain muscular in nature hypokalemia Discharge Disposition: AMA Discharge Statement: "Patient was advised to return to the ER or call 911 if any headaches, dizziness, shortness of breath, chest pain, abdominal pain, bleeding, fevers, or worsening of medical condition. Patient was counseled about treatment plan, medications, possible side effects, patientverbalized understanding. All questions were answered to the best of my ability. This discharge took greater then 30 minutes in planning, reviewing documentation, counseling the patient, and discussing with other team members." ASSESSMENT ASSESSMENT Assessment Date of Service: Sep 23, 2024 Billing Provider: JESUS MELLO MD Common Visit Codes: 82602-RVS/OBS DISCH DAY >30min JESUS MELLO MD Sep 23, 2024 15:57
== END 2024-09-23 15:00 | disposition left against medical advice (07) | DRG 203 ==
LOC: ER 06:16 → OVERFLOW 10:00 → TELE-WESTW 18:05
PROVIDERS: ADMIT Hospitalist; ATTEND Hospitalist
DX: M94.0 Chondrocostal junction syndrome [Tietze] (principal); K92.0 Hematemesis; D72.829 Elevated white blood cell count, unspecified; E87.6 Hypokalemia; F10.90 Alcohol use, unspecified, uncomplicated; E11.9 Type 2 diabetes mellitus without complications; Z53.29 Procedure and treatment not carried out because of patient's decision for other reasons; F17.210 Nicotine dependence, cigarettes, uncomplicated; J98.4 Other disorders of lung; J45.909 Unspecified asthma, uncomplicated; Z79.899 Other long term (current) drug therapy; Z82.49 Family history of ischemic heart disease and other diseases of the circulatory system; Z83.3 Family history of diabetes mellitus; Y90.9 Presence of alcohol in blood, level not specified
CPT/HCPCS: 36415; 71045; 74176; 80048; 80061; 80307; 81001; 83036; 83735; 84443; 84484; 85025; 93306; 96365; 96375; 99291; 99292; G0378; J2405; J2543

== ENCOUNTER 2024-12-07 12:09 | Emergency (ER) | payer OTHER ==
[~2024-12-07] VITALS: Ht 157.5 cm; Wt 75.0 kg
[2024-12-07 12:26] VITALS: TEMP 98.8
--- NOTE | 2024-12-07 12:40 | ED.PDOC ---
History of Present Illness HPI Comments 38-year-old male brought by paramedics because of abdominal pain which started last night. He does not have a history of pancreatitis. He does drink daily along with the using marijuana. Last attack of pancreatitis was few months ago. Denies any other symptoms. Chief Complaint: Abdominal Pain Time Seen by MD: 12:26 Primary Care Provider: LORENA Whitehead Notes: Nurses Notes, Medications, Allergies Allergies: Coded Allergies: NO KNOWN ALLERGIES (Unverified , 07/10/24) Home Meds No Active Prescriptions or Reported Meds Information Source: Patient, Emergency Med Personnel Mode of Arrival: EMS Severity: Moderate Timing: Days Duration: Since onset Past Medical History PAST MEDICAL HISTORY: Denies Surgical History: Denies all surgeries Family History Family History: Family hx of Cancer Social History Smoker: Cigarettes, Less Than 1 Pack/Day Alcohol: Heavy Drugs: Marijuana Lives In: Home Constitutional: denies: chills, diaphoresis, fatigue, fever, malaise, sweats, weakness, others EENTM: denies: blurred vision, double vision, ear bleeding, ear discharge, ear drainage, ear pain, ear ringing, eye pain, eye redness, hearing loss, mouth pain, mouth swelling, nasal discharge, nose bleeding, nose congestion, nose p ain, photophobia, tearing, throat pain, throat swelling, voice changes, others Respiratory: denies: cough, hemoptysis, orthopnea, SOB at rest, shortness of breath, SOB with excertion, stridor, wheezing, others Cardiovascular: denies: chest pain, dizzy spells, diaphoresis, Dyspnea on exertion, edema, irregular heart beat, left arm pain, lightheadedness, palpitations, PND, syncope, others Gastrointestinal: reports: abdominal pain; denies: abdomen distended, blood streaked bowels, constipated, diarrhea, dysphagia, difficulty swallowing, hematemesis, melena, nausea, poor appetite, poor fluid intake, rectal bleeding, rectal pain, vomiting, others Genitourinary: denies: burning, dysuria, flank pain, frequency, hematuria, incontinence, penile discharge, penile sore, pain, testicle pain, testicle swelling, urgency, others Neurological: denies: dizziness, fainting, headache, left sided numbness, left sided weakness, numbness, paresthesia, pre-existing deficit, right sided numbness, right sided weakness, seizure, speech problems, tingling, tremors, weakness, others Musculoskeletal: denies: back pain, gout, joint pain, joint swelling, muscle pain, muscle stiffness, neck pain, others Integumetry: denies: bruises, change in color, change in hair/nails, dryness, laceration, lesions, lumps, rash, wounds, others Allergic/Immunocompromised: denies: Difficulty Healing, Frequent Infections, Hives, Itching, others Hematologic/Lymphatic: denies: anemia, blood clots, easy bleeding, easy bruising, swollen glands, others Endocrine: denies: excessive hunger, excessive sweating, excessive thirst, excessive urination, flushing, intolerance to cold, intolerance to heat, unexplained weight gain, unexplained weight loss, others Psychiatric: denies: anxiety, bipolar disorder, depression, hopeless, panic disorder, schizophrenia, sleepless, suicidal, others Physical Exam General Appearance: Moderate Distress HEENT: Normal ENT Inspection, Pharynx Normal, TMs Normal Neck: Full Range of Motion, Non-Tender, Normal, Normal Inspection Respiratory: Chest Non-Tender, Lungs Clear, No Accessory Muscle Use, No Respiratory Distress, Normal Breath Sounds Cardiovascular: No Edema, No JVD, No Murmur, No Gallop, Normal Peripheral Pulses, Regular Rate/Rhythm Breast Exam: Deferred Gastrointestinal: No Organomegaly, Non Tender, No Pulsatile Mass, Normal Bowel Sounds, Soft Genitalia: Deferred Pelvic: Deferred Rectal: Deferred Extremities: No calf tenderness, Normal capillary refill, Normal inspection, Normal range of motion, Non-tender, No pedal edema Musculoskeletal : Apperance: Normal Neurologic: Alert, therapeutic case manager II-XII nml as Tested, No Motor Deficits, Normal Affect, Normal Mood, No Sensory Deficits Cerebellar Function: NOT DONE Reflexes: NOT DONE Skin: Dry, Normal Color, Warm Peripheral Pulses: 3+ Radial (R), 3+ Radial (L) Lymphatic: No Adenopathy Was a procedure done? Was a procedure done?: No Differential Dx Considerations may include: Pancreatitis Electrolyte imbalance X-Ray, Labs, Meds, VS Vital Signs Date Time Temp Pulse Resp B/P (MAP) Pulse Ox O2 Delivery O2 Flow Rate FiO2 12/07/24 13:51 86 17 147/82 12/07/24 13:21 70 16 149/100 12/07/24 13:15 70 18 95 Room Air 12/07/24 13:15 70 18 149/100 (116) 95 12/07/24 12:26 98.8 66 16 168/94 96 98.8 Lab Test 12/07/24 13:10 12/07/24 12:09 Range/Units White Blood Count 9.4 4.4-10.8 10^3/uL Red Blood Count 5.35 4.5-5.90 10^6/uL Hemoglobin 15.2 13.5-17.5 g/dL Hematocrit 45.0 41.0-53.0 % Mean Corpuscular Volume 84.2 80.0-100.0 fL Mean Corpuscular Hemoglobin 28.4 28.0-32.0 pg Mean Corpuscular Hemoglobin Concent 33.7 32.0-36.0 g/dL Red Cell Distribution Width 14.6 H 11.8-14.3 % Platelet Count 274 140-450 10^3/uL Mean Platelet Volume 7.5 6.9-10.8 fL Neutrophils (%) (Auto) 85.1 H 37.0-80.0 % Lymphocytes (%) (Auto) 8.5 L 10.0-50.0 % Monocytes (%) (Auto) 6.2 0.0-12.0 % Eosinophils (%) (Auto) 0.1 0.0-7.0 % Basophils (%) (Auto) 0.1 0.0-2.0 % Neutrophils # (Auto) 8.1 1.6-8.6 10 ^3/uL Lymphocytes # (Auto) 0.8 0.4-5.4 10 ^3/uL Monocytes # (Auto) 0.6 0-1.3 10 ^3/uL Eosinophils # (Auto) 0 0-0.8 10 ^3/uL Basophils # (Auto) 0 0-0.2 10 ^3/uL Nucleated Red Blood Cells 0.0 % Sodium Level 142 136-145 mmol/L Potassium Level 3.8 3.5-5.1 mmol/L Chloride Level 106 98-107 mmol/L Carbon Dioxide Level 26 20-31 mmol/L Anion Gap 10 5-15 Blood Urea Nitrogen < 5 L 9-23 mg/dL Creatinine 0.85 0.700-1.30 mg/dL Glomerular Filtration Rate Calc 114 >90 mL/min BUN/Creatinine Ratio 5.9 L 10.0-20.0 Serum Glucose 118 H 74-106 mg/dL Calcium Level 9.8 8.7-10.4 mg/dL Lipase 31 12-53 U/L Urine Color Yellow Yellow Urine Clarity Clear Clear Urine pH 8.5 5.0-9.0 Urine Specific [place] 1.032 1.001-1.035 Urine Protein 2+ H Negative Urine Ketones 1+ H Negative Urine Blood Negative Negative /uL Urine Nitrite Negative Negative Urine Bilirubin Negative Negative Urine Urobilinogen 2 H Negative mg/dL Urine Leukocyte Esterase Negative Negative /uL Urine RBC 3 0 - 3 /hpf Urine Microscopic WBC 2 0-3 /HPF Urine Squamous Epithelial Cells Few <5 /hpf Urine Amorphous Crystals Few None Seen /hpf Urine Bacteria None seen None Seen /hpf Urine Mucus Few None Seen Urine Glucose Normal Normal mg/dL Current Medications Medications (Trade) Dose Ordered Sig/Tim Route Start Time Stop Time Status Last Admin Ondansetron HCl (Zofran) 4 mg ONCE ONCE IV 12/07/24 12:45 12/07/24 12:46 DC 12/07/24 13:20 Sodium Chloride 1,000 ml @ 1,000 mls/hr Q1H ONCE IVB 12/07/24 12:45 12/07/24 13:44 DC 12/07/24 13:13 Morphine Sulfate 4 mg ONCE ONCE IV 12/07/24 12:45 12/07/24 12:46 DC 12/07/24 13:21 Patient alert. Complaining of abdominal pain. Vitals stable. Answering questions. Establish intravenous access. Was given fluids. Was given morphine. Was given Zofran. Counseled patient on effects of drinking alcohol for 15 minutes. Physical examination is pristine. Abdomen is soft nontender. Lipase within normal limits. CT scan was not done because physical examination was pristine. Possible gastritis. Explained to the patient. Was told to follow up with his primary care physician. Was told to come back if there is any problem. Time of 1ST Reevaluation: 12:38 Reevaluation 1ST: Unchanged Patient Education/Counseling: Diagnosis, Treatment, Prognosis Family Education/Counseling: No Family Present SEPSIS Sepsis Screen Vital Signs Date Time Temp Pulse Resp B/P (MAP) Pulse Ox O2 Delivery O2 Flow Rate FiO2 12/07/24 13:51 86 17 147/82 12/07/24 13:21 70 16 149/100 12/07/24 13:15 70 18 95 Room Air 12/07/24 13:15 70 18 149/100 (116) 95 12/07/24 12:26 98.8 66 16 168/94 96 98.8 Laboratory Tests Test 12/07/24 13:10 White Blood Count 9.4 10^3/uL (4.4-10.8) Medications Medications Dose Ordered Sig/Tim Route Start Time Stop Time Status Last Admin Dose Admin Morphine Sulfate 4 mg ONCE ONCE IV 12/07/24 12:45 12/07/24 12:46 DC 12/07/24 13:21 Ondansetron HCl 4 mg ONCE ONCE IV 12/07/24 12:45 12/07/24 12:46 DC 12/07/24 13:20 Sodium Chloride 1,000 ml @ 1,000 mls/hr Q1H ONCE IVB 12/07/24 12:45 12/07/24 13:44 DC 12/07/24 13:13 Departure 1 Departure Time of Disposition: 12:39 Impression: Primary Impression: Uncontrolled diabetes mellitus Qualified Codes: E13.65 - Other specified diabetes mellitus with hyperglycemia Disposition: 01 HOME / SELF CARE / HOMELESS Condition: Guarded e-Prescriptions No Active Prescriptions or Reported Meds Critical Care Note Critical Care Time?: No Stability Stability form required: No Heart Score Heart Score: Heart Score Response (Comments) Value History N/A 0 EKG N/A 0 Age N/A 0 Risk Factors N/A 0 Troponin N/A 0 Total 0 PAM PHILIP MD Dec 07, 2024 12:40
[2024-12-07] MEDS: SODIUM CHLORIDE 0.9% 1,000 ML IVB ONE (13:13)
[2024-12-07 13:15] VITALS: O2SAT 95
[2024-12-07] MEDS: ONDANSETRON HCL 4 MG/2 ML VIAL IV ONE (13:20)
[2024-12-07] MEDS: MORPHINE SULFATE 4 MG/ML SYR/VIAL IV ONE (13:21)
[2024-12-07 13:29] LABS: Hematocrit 45.0 % (41.0-53.0); Hemoglobin 15.2 g/dL (13.5-17.5); Mean Corpuscular Hemoglobin 28.4 pg (28.0-32.0); Mean Corpuscular Volume 84.2 fL (80.0-100.0); Nucleated Red Blood Cells % 0.0 %
[2024-12-07 13:35] LABS: Chloride 106 mmol/L (98-107); Potassium 3.8 mmol/L (3.5-5.1); Sodium 142 mmol/L (136-145)
[2024-12-07 13:36] LABS: Anion Gap 10 (5-15); Calcium 9.8 mg/dL (8.7-10.4); Carbon Dioxide 26 mmol/L (20-31)
[2024-12-07 13:41] LABS: Lipase 31 U/L (12-53)
[2024-12-07 13:45] LABS: BUN/Creatinine Ratio 5.9 (10.0-20.0); Blood Urea Nitrogen < 5 mg/dL (9-23); Glucose 118 mg/dL (74-106)
[2024-12-07 13:45] LABS: Urine Amorphous Crystal FEW /hpf (None Seen); Urine Protein, UAD 2+ (Negative)
[2024-12-07 13:51] VITALS: BP 147/82; PULSE 86; RESP 17
== END 2024-12-07 14:30 | disposition home or self-care (01) ==
LOC: EDBD 12:09 → EDSEX 12:09 → ER 12:09
DX: E11.65 Type 2 diabetes mellitus with hyperglycemia (principal); F17.210 Nicotine dependence, cigarettes, uncomplicated; F10.90 Alcohol use, unspecified, uncomplicated; F12.90 Cannabis use, unspecified, uncomplicated; Y90.9 Presence of alcohol in blood, level not specified
CPT/HCPCS: 36415; 80048; 81001; 83690; 85025; 96361; 96374; 96375; 99284; J2270; J2405; J7030

== ENCOUNTER 2024-12-17 15:54 | Emergency (ER) | payer OTHER ==
[~2024-12-17] VITALS: Ht 188 cm; Wt 71.2 kg
--- NOTE | 2024-12-17 16:25 | ED.PDOC ---
History of Present Illness HPI Comments A 38 YEAR OLD MALE PRESENTS TO THE ED WITH COMPLAINT OF LEFT UPPER EYELID SWELLING WITH PAIN AND MIGRAINE HEADACHE. PATIENT STATES HE HAS A HISTORY OF MIGRAINE HEADACHES AND HAS BEEN EXPERIENCING A MIGRAINE HEADACHE FOR THE PAST 2 DAYS. PATIENT REPORTS HIS PAIN IS THE SAME PREVIOUS MIGRAINE HEADACHES HE H HAD IN THE PAST. PATIENT REPORTS HE ALSO WOKE UP TODAY WITH LEFT UPPER EYELID SWELLING AND PAIN. PATIENT DENIES VISION CHANGES, FEVER, CHILLS, SHORTNESS OF BREATH, CHEST PAIN, ABDOMINAL PAIN, NAUSEA, VOMITING, OR OTHER COMPLAINTS. NO OTHER SYMPTOMS OR MODIFYING FACTORS AT THIS TIME. PATIENT IS ALERT, ORIENTED X 4, AND HAS STEADY GAIT. Chief Complaint: Headache Time Seen by MD: 16:00 Primary Care Provider: LORENA Whitehead Notes: Nurses Notes, Medications, Allergies Allergies: Coded Allergies: NO KNOWN ALLERGIES (Unverified , 07/10/24) Home Meds Active Scripts Sumatriptan Succinate (Imitrex) 50 Mg Tab, 1 TAB PO BID, #20 TAB Prov:BIANCA SALMERON 12/17/24 Tobramycin Sulfate (Tobrex) [address], 2 DROP OP QID, #5 ML Prov:BIANCA SALMERON 12/17/24 Cephalexin Monohydrate (Cephalexin) 500 Mg Cap, 1 CAP PO QID, #32 CAP Prov:BIANCA SALMERON 12/17/24 Information Source: Patient Mode of Arrival: Ambulatory Severity: Moderate Timing: Days Duration: Since onset, Days Prehospital treatment: None Medication Refill: For: Other (MIGRAINE HEADACHE AND LEFT UPPER EYELID) Past Medical History Past Medical History (Other): MIGRAINE HEADACHES Surgical History: Denies all surgeries Family History Family History: Reviewed,noncontributory to illness, Family hx of Cancer Social History Smoker: Cigarettes, Less Than 1 Pack/Day Alcohol: Heavy Drugs: Marijuana Lives In: Home Constitutional: denies: chills, diaphoresis, fatigue, fever, malaise, sweats, weakness, others EENTM: reports: eye redness, others (LEFT UPPER EYELID SWELLING); denies: blurred vision, double vision, ear bleeding, ear discharge, ear drainage, ear pain, ear ringing, eye pain, hearing loss, mouth pain, mouth swelling, nasal discharge, nose bleeding, nose congestion, nose pain, photophobia, tearing, throat pain, throat swelling, voice changes Respiratory: denies: cough, hemoptysis, orthopnea, SOB at rest, shortness of breath, SOB with excertion, stridor, wheezing, others Cardiovascular: denies: chest pain, dizzy spells, diaphoresis, Dyspnea on exertion, edema, irregular heart beat, left arm pain, lightheadedness, palpitations, PND, syncope, others Gastrointestinal: denies: abdomen distended, abdominal pain, blood streaked bowels, constipated, diarrhea, dysphagia, difficulty swallowing, hematemesis, melena, nausea, poor appetite, poor fluid intake, rectal bleeding, rectal pain, vomiting, others Genitourinary: denies: burning, dysuria, flank pain, frequency, hematuria, incontinence, penile discharge, penile sore, pain, testicle pain, testicle swelling, urgency, others Neurological: reports: headache; denies: dizziness, fainting, left sided numbness, left sided weakness, numbness, paresthesia, pre-existing deficit, right sided numbness, right sided weakness, seizure, speech problems, tingling, tremors, weakness, others Musculoskeletal: denies: back pain, gout, joint pain, joint swelling, muscle pain, muscle stiffness, neck pain, others Integumetry: denies: bruises, change in color, change in hair/nails, dryness, laceration, lesions, lumps, rash, wounds, others Allergic/Immunocompromised: denies: Difficulty Healing, Frequent Infections, Hives, Itching, others Hematologic/Lymphatic: denies: anemia, blood clots, easy bleeding, easy bruising, swollen glands, others Endocrine: denies: excessive hunger, excessive sweating, excessive thirst, excessive urination, flushing, intolerance to cold, intolerance to heat, unexplained weight gain, unexplained weight loss, others Psychiatric: denies: anxiety, bipolar disorder, depression, hopeless, panic disorder, schizophrenia, sleepless, suicidal, others All Other Systems: Reviewed and Negative Physical Exam General Appearance: No Apparent Distress, Normal HEENT: Eye Lid (L) (ERYTHEMA AND SWELLING ON LEFT UPPER EYELID, A STYE INSIDE LEFT UPPER EYELID, MILD LEFT SUBCONJUNCTIVA HEMORRHAGE WITH WATERY DISCHARGE. ), Normal ENT Inspection, PERRL/EOMI, Pharynx Normal, TMs Normal Neck: Full Range of Motion, Non-Tender, Normal, Normal Inspection Respiratory: Chest Non-Tender, Lungs Clear, No Accessory Muscle Use, No Respiratory Distress, Normal Breath Sounds Cardiovascular: No Edema, No JVD, No Murmur, No Gallop, Normal Peripheral Pulses, Regular Rate/Rhythm Breast Exam: Deferred Gastrointestinal: No Organomegaly, Non Tender, No Pulsatile Mass, Normal Bowel Sounds, Soft Genitalia: Deferred Pelvic: Deferred Rectal: Deferred Extremities: No calf tenderness, Normal capillary refill, Normal inspection, Normal range of motion, Non-tender, No pedal edema Musculoskeletal : Apperance: Normal Neurologic: Alert, casting carrier II-XII nml as Tested, Headache, No Motor Deficits, Normal Affect, Normal Mood, No Sensory Deficits Cerebellar Function: Normal Reflexes: Normal Skin: Dry, Normal Color, Warm Peripheral Pulses: 2+ carotid (R), 2+ carotid (L) Lymphatic: No Adenopathy Was a procedure done? Was a procedure done?: No Differential Dx Considerations may include: MIGRAINE HEADACHE, TENSION HEADACHE, HORDEOLUM, CONJUNCTIVITIS, EYE IRRITATION X-Ray, Labs, Meds, VS Vital Signs Date Time Temp Pulse Resp B/P (MAP) Pulse Ox O2 Delivery O2 Flow Rate FiO2 12/17/24 15:56 98.2 93 18 143/91 97 98.2 Current Medications Medications (Trade) Dose Ordered Sig/Tim Route Start Time Stop Time Status Last Admin Sumatriptan Succinate (Imitrex Inj) 6 mg ONCE ONCE SC 12/17/24 16:30 12/17/24 16:31 DC 12/17/24 16:29 X-Ray, Labs, Meds, VS Comment EXTERNAL MEDICAL RECORDS REVIEWED: [NONE] INDEPENDENT HISTORIANS: [NONE] SOCIAL DETERMINANTS OF HEALTH: [NONE] LABS ORDERED: NONE REVIEWED AND INTERPRETED RESULTS: NONE IMAGING ORDERED: NONE TREATMENTS ORDERED: IMITREX 6 MG IM PROCEDURES PERFORMED: NONE CRITICAL CARE TIME: NONE I HAVE DISCUSSED THE PATIENT WITH THE ATTENDING PHYSICIAN DR. PHILIP AND HE AGREES WITH THE PATIENT'S PLAN OF CARE AND DISPOSITION. BASED ON HISTORY OF PRESENT ILLNESS, AND PHYSICAL EXAM, PATIENT WILL BE DISCHARGED HOME. DISCUSSED PLAN FOR DISCHARGE HOME WITH RX [IMITREX, KEFLEX, AND TOBREX EYE DROPS]. MEDICATION WARNINGS GIVEN. SHARED DECISION MAKING: PATIENT INSTRUCTED TO FOLLOW UP WITH PRIMARY CARE PROVIDER IN 1-2 DAYS FOR RE-EVALUATION OF SYMPTOMS. PATIENT VERBALIZES UNDERSTANDING TO RETURN TO ED FOR NEW OR WORSENING SYMPTOMS OR IF FOLLOW UP WITH PCP CANNOT BE OBTAINED. PATIENT FEELS COMFORTABLE GOING HOME AT THIS TIME. ALL QUESTIONS ADDRESSED AT TIME OF DISCHARGE. Time of 1ST Reevaluation: 17:00 Reevaluation 1ST: Improved Patient Education/Counseling: Diagnosis, Treatment, Need For Follow Up Family Education/Counseling: Diagnosis, Treatment, Need For Follow Up Medical Screening: No EMC Exist At This Time SEPSIS Sepsis Screen Date sepsis recognized/suspect: Dec 17, 2024 Time Sepsis recognized/suspect: 1556 Recent Procedure: No On Antibiotic Therapy: No Respiratory Rate >20: No Heart Rate >90: No Temp<36 C (96.8 F) or >38.3 C: No SBP <90 or MAP <65 mmHG: No New Acute Mental Status Change: No Is the patient on CPAP, BIPAP,: No Vital Signs Date Time Temp Pulse Resp B/P (MAP) Pulse Ox O2 Delivery O2 Flow Rate FiO2 12/17/24 15:56 98.2 93 18 143/91 97 98.2 Medications Medications Dose Ordered Sig/Tim Route Start Time Stop Time Status Last Admin Dose Admin Sumatriptan Succinate 6 mg ONCE ONCE SC 12/17/24 16:30 12/17/24 16:31 DC 12/17/24 16:29 Departure 1 Departure Time of Disposition: 17:00 Impression: Primary Impression: Hordeolum internum left upper eyelid Additional Impression: Migraine headache without aura Qualified Codes: G43.009 - Migraine without aura, not intractable, without status migrainosus Disposition: 01 HOME / SELF CARE / HOMELESS Condition: Stable Additional Instructions: FOLLOW-UP WITH PCP IN 1 TO 2 DAYS. TAKE MEDICATIONS PRESCRIBED. RETURN TO ED FOR ANY NEW OR WORSENING SYMPTOMS. e-Prescriptions Sumatriptan Succinate (Imitrex) 50 Mg Tab 1 TAB PO BID, #20 TAB Prov: BIANCA SALMERON 12/17/24 Tobramycin Sulfate (Tobrex) [address] 2 DROP OP QID, #5 ML Prov: BIANCA SALMERON 12/17/24 Cephalexin Monohydrate (Cephalexin) 500 Mg Cap 1 CAP PO QID, #32 CAP Prov: BIANCA SALMERON 12/17/24 Discharged With: Self Critical Care Note Critical Care Time?: No Stability Stability form required: No I personally scribed for BIANCA SALMERON ([email or web address]) on 12/17/24 at 16:25. Electron ically submitted by Frank Machuca ([email or web address]). BIANCA SALMERON Dec 17, 2024 16:25
[2024-12-17] MEDS: SUMAtriptan SUCCINATE 6 MG/0.5 ML VL SC ONE (16:29)
[2024-12-17] MEDS ORDERED: SUMA50TA2 PO (16:34)
[2024-12-17] MEDS ORDERED: TOB03OS OP (16:34)
[2024-12-17] MEDS ORDERED: CEPH500C PO (16:34)
[2024-12-17 16:51] VITALS: BP 143/91; PULSE 93; RESP 18; TEMP 98.2; O2SAT 97
== END 2024-12-17 16:56 | disposition home or self-care (01) ==
LOC: ER 15:54
DX: H00.024 Hordeolum internum left upper eyelid (principal); G43.009 Migraine without aura, not intractable, without status migrainosus; F17.210 Nicotine dependence, cigarettes, uncomplicated; Z79.899 Other long term (current) drug therapy; Z98.890 Other specified postprocedural states
CPT/HCPCS: 96372; 99283; J3030

== ENCOUNTER 2025-03-11 13:05 | Emergency (ER) | payer OTHER ==
[~2025-03-11] VITALS: Ht 188 cm; Wt 71.3 kg
[~2025-03-11 13:05] MED LIST changes: +CEPH500C PO; -HYDR-4902 PO; +SUMA50TA2 PO; +TOB03OS OP
--- NOTE | 2025-03-11 14:00 | ED.PDOC ---
History of Present Illness HPI Comments A 39 YEAR OLD MALE PRESENTS TO THE ED WITH COMPLAINT OF ECZEMA FLARE AND CHRONIC BODY/JOINT PAIN. PATIENT STATES HE HAS A HISTORY OF ECZEMA AND ARTHRITIS AND HAS BEEN EXPERIENCING A WORSENING RASH AND BODY/JOINT PAIN OVER THE PAST 1 WEEK. PATIENT NOTES HE HAS ALSO BEEN EXPERIENCING NASAL CONGESTION FOR THE PAST 3 DAYS. PATIENT DENIES FEVER, CHILLS, SHORTNESS OF BREATH, CHEST PAIN, ABDOMINAL PAIN, NAUSEA, VOMITING, HEADACHE, OR OTHER COMPLAINTS. NO OTHER SYMPTOMS OR MODIFYING FACTORS AT THIS TIME. PATIENT IS ALERT, ORIENTED X 4, AND HAS STEADY GAIT. Chief Complaint: Body Pain Time Seen by MD: 13:23 Primary Care Provider: LORENA Whitehead Notes: Nurses Notes, Medications, Allergies Allergies: Coded Allergies: NO KNOWN ALLERGIES (Unverified , 07/10/24) Home Meds Active Scripts Sumatriptan Succinate (Imitrex) 50 Mg Tab, 1 TAB PO BID, #20 TAB Prov:BIANCA SALMERON 12/17/24 Tobramycin Sulfate (Tobrex) [address], 2 DROP OP QID, #5 ML Prov:BIANCA SALMERON 12/17/24 Cephalexin Monohydrate (Cephalexin) 500 Mg Cap, 1 CAP PO QID, #32 CAP Prov:BIANCA SALMERON 12/17/24 Information Source: Patient Mode of Arrival: Ambulatory Severity: Moderate Timing: Days Duration: Since onset, Days Prehospital treatment: None Medication Refill: For: Other (ECZEMA FLARE AND CHRONIC BODY/JOINT PAIN) Past Medical History PAST MEDICAL HISTORY: Arthritis Past Medical History (Other): ECZEMA Surgical History: Denies all surgeries Family History Family History: Reviewed,noncontributory to illness, Family hx of Cancer Social History Smoker: Cigarettes, Less Than 1 Pack/Day Alcohol: Heavy Drugs: Marijuana Lives In: Home Constitutional: denies: chills, diaphoresis, fatigue, fever, malaise, sweats, weakness, others EENTM: denies: blurred vision, double vision, ear bleeding, ear discharge, ear drainage, ear pain, ear ringing, eye pain, eye redness, hearing loss, mouth pain, mouth swelling, nasal discharge, nose bleeding, nose congestion, nose pain, photophobia, tearing, throat pain, throat swelling, voice changes, others Respiratory: denies: cough, hemoptysis, orthopnea, SOB at rest, shortness of breath, SOB with excertion, stridor, wheezing, others Cardiovascular: denies: chest pain, dizzy spells, diaphoresis, Dyspnea on exertion, edema, irregular heart beat, left arm pain, lightheadedness, palpitations, PND, syncope, others Gastrointestinal: denies: abdomen distended, abdominal pain, blood streaked bowels, constipated, diarrhea, dysphagia, difficulty swallowing, hematemesis, melena, nausea, poor appetite, poor fluid intake, rectal bleeding, rectal pain, vomiting, others Genitourinary: denies: burning, dysuria, flank pain, frequency, hematuria, incontinence, penile discharge, penile sore, pain, testicle pain, testicle swelling, urgency, others Neurological: denies: dizziness, fainting, headache, left sided numbness, left sided weakness, numbness, paresthesia, pre-existing deficit, right sided numbness, right sided weakness, seizure, speech problems, tingling, tremors, weakness, others Musculoskeletal: reports: joint pain, muscle pain; denies: back pain, gout, joint swelling, muscle stiffness, neck pain, others Integumetry: reports: rash; denies: bruises, change in color, change in hair/nails, dryness, laceration, lesions, lumps, wounds, others Allergic/Immunocompromised: reports: Itching; denies: Difficulty Healing, Frequent Infections, Hives, others Hematologic/Lymphatic: denies: anemia, blood clots, easy bleeding, easy bruising, swollen glands, others Endocrine: denies: excessive hunger, excessive sweating, excessive thirst, excessive urination, flushing, intolerance to cold, intolerance to heat, unexplained weight gain, unexplained weight loss, others Psychiatric: denies: anxiety, bipolar disorder, depression, hopeless, panic disorder, schizophrenia, sleepless, suicidal, others All Other Systems: Reviewed and Negative Physical Exam General Appearance: No Apparent Distress, Normal HEENT: Normal ENT Inspection, PERRL/EOMI, Pharynx Normal, TMs Normal Neck: Full Range of Motion, Non-Tender, Normal, Normal Inspection Respiratory: Chest Non-Tender, Lungs Clear, No Accessory Muscle Use, No Respiratory Distress, Normal Breath Sounds Cardiovascular: No Edema, No JVD, No Murmur, No Gallop, Normal Peripheral Pulses, Regular Rate/Rhythm Breast Exam: Deferred Gastrointestinal: No Organomegaly, Non Tender, No Pulsatile Mass, Normal Bowel Sounds, Soft Genitalia: Deferred Pelvic: Deferred Rectal: Deferred Extremities: No calf tenderness, Normal capillary refill, Normal range of motion, No pedal edema, Tender (AND MILD SWELLING ON BILATERAL HAND, NO BONY TENDERNESS AND DEFORMITY. 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 ), Warm Peripheral Pulses: 2+ carotid (R), 2+ carotid (L) Lymphatic: No Adenopathy Was a procedure done? Was a procedure done?: No Differential Dx Considerations may include: ECZEMA FLARE, CHRONIC BODY JOINT PAIN, URI, NASAL CONGESTION, CONTACT MARIIA MATITIS, ATOPIC DERMATITIS X-Ray, Labs, Meds, VS Vital Signs Date Time Temp Pulse Resp B/P (MAP) Pulse Ox O2 Delivery O2 Flow Rate FiO2 03/11/25 13:14 98.8 104 18 144/82 98 98.8 X-Ray, Labs, Meds, VS Comment EXTERNAL MEDICAL RECORDS REVIEWED: [NONE] INDEPENDENT HISTORIANS: [NONE] SOCIAL DETERMINANTS OF HEALTH: [NONE] LABS ORDERED: NONE REVIEWED AND INTERPRETED RESULTS: NONE IMAGING ORDERED: NONE TREATMENTS ORDERED: TORADOL 60 MG IM, SOLU-MEDROL 125 MG IM PROCEDURES PERFORMED: NONE CRITICAL CARE TIME: NONE I HAVE DISCUSSED THE PATIENT WITH THE ATTENDING PHYSICIAN DR. EDMOND AND HE AGREES WITH THE PATIENT'S PLAN OF CARE AND DISPOSITION. BASED ON HISTORY OF PRESENT ILLNESS, AND PHYSICAL EXAM, PATIENT WILL BE DISCHARGED HOME. DISCUSSED PLAN FOR DISCHARGE HOME WITH RX [PREDNISONE, TRIAMCINOLONE CREAM, NAPROXEN 500MG, AND KEFLEX]. MEDICATION WARNINGS GIVEN. SHARED DECISION MAKING: PATIENT INSTRUCTED TO FOLLOW UP WITH PRIMARY CARE PROVIDER IN 1-2 DAYS FOR RE-EVALUATION OF SYMPTOMS. PATIENT VERBALIZES UNDERSTANDING TO RETURN TO ED FOR NEW OR WORSENING SYMPTOMS OR IF FOLLOW UP WITH PCP CANNOT BE OBTAINED. PATIENT FEELS COMFORTABLE GOING HOME AT THIS TIME. ALL QUESTIONS ADDRESSED AT TIME OF DISCHARGE. Time of 1ST Reevaluation: 14:30 Reevaluation 1ST: Improved Patient Education/Counseling: Diagnosis, Treatment, Need For Follow Up Family Education/Counseling: Diagnosis, Treatment, Need For Follow Up Medical Screening: No EMC Exist At This Time SEPSIS Sepsis Screen Date sepsis recognized/suspect: Mar 11, 2025 Time Sepsis recognized/suspect: 1316 Recent Procedure: No On Antibiotic Therapy: No Respiratory Rate >20: No Heart Rate >90: Yes Temp<36 C (96.8 F) or >38.3 C: No SBP <90 or MAP <65 mmHG: No New Acute Mental Status Change: No Is the patient on CPAP, BIPAP,: No Physician Orders Methylprednisolone Sod Succ (Solu Medrol (03/11/25 14:00) Ketorolac Injection (Toradol Injection) (03/11/25 14:00) Vital Signs Date Time Temp Pulse Resp B/P (MAP) Pulse Ox O2 Delivery O2 Flow Rate FiO2 03/11/25 13:14 98.8 104 18 144/82 98 98.8 Departure 1 Departure Time of Disposition: 14:30 Impression: Primary Impression: Eczema of both hands Additional Impressions: Generalized degenerative joint disease of hand Pain management Disposition: HOME / SELF CARE / HOMELESS Condition: Stable Additional Instructions: FOLLOW-UP WITH PCP IN 1 TO 2 DAYS. TAKE MEDICATIONS PRESCRIBED. RETURN TO ED FOR ANY NEW OR WORSENING SYMPTOMS. e-Prescriptions Naproxen (Naproxen) 500 Mg Tab 500 MG PO BID, #30 TAB Prov: BIANCA SALMERON 03/11/25 Methylprednisolone (Medrol Dosepak) 4 Mg Usman 4 MG PO UD, #21 TAB UAD Prov: BIANCA SALMERON 03/11/25 Triamcinolone Acetonide (Triamcinolone Acetonide) 0.1 % Oin 1 APPLIC TOP BID, #80 GRAMS Prov: BIANCA SALMERON 03/11/25 Cephalexin Monohydrate (Cephalexin) 500 Mg Cap 1 CAP PO TID, #30 CAP Prov: BIANCA SALMERON 03/11/25 Discharged With: Self Critical Care Note Critical Care Time?: No Stability Stability form required: No I personally scribed for BIANCA SALMERON ([email or web address]) on 03/11/25 at 14:00. Electronically submitted by Frank Machuca ([email or web address]). BIANCA SALMERON Mar 11, 2025 14:00
[2025-03-11] MEDS ORDERED: METH4PAK PO (14:08)
[2025-03-11] MEDS ORDERED: NAPR-746 PO (14:08)
[2025-03-11] MEDS ORDERED: CEPH500C PO (14:08)
[2025-03-11] MEDS ORDERED: TRIA0.1O TOP (14:08)
[2025-03-11] MEDS ORDERED: KETOROLAC TROMETH 60MG/2ML VIAL ONE (14:10)
[2025-03-11] MEDS ORDERED: methylPREDNISolone SOD SUCC 125 MG/2 ML VL ONE ×2 (14:10)
[2025-03-11] MEDS: KETOROLAC TROMETH 60MG/2ML VIAL IM ONE (14:11)
[2025-03-11] MEDS: methylPREDNISolone SOD SUCC 125 MG/2 ML VL IM ONE (14:11)
[2025-03-11 14:19] VITALS: BP 144/82; PULSE 104; RESP 18; TEMP 98.8; O2SAT 98
[2025-03-12] MEDS ORDERED: ZOFR4T PO (06:36)
== END 2025-03-11 14:20 | disposition home or self-care (01) ==
LOC: ER 13:14
DX: L30.9 Dermatitis, unspecified (principal); M19.049 Primary osteoarthritis, unspecified hand; F17.210 Nicotine dependence, cigarettes, uncomplicated
CPT/HCPCS: 96372; 99284; J1885; J2919; 12001

== ENCOUNTER 2025-03-12 01:58 | Emergency (ER) | payer OTHER ==
[~2025-03-12] VITALS: Ht 188 cm; Wt 75.0 kg
[~2025-03-12 01:58] MED LIST changes: +METH4PAK PO; +NAPR-746 PO; +TRIA0.1O TOP
[2025-03-12 03:38] LABS: Hematocrit 41.9 % (41.0-53.0); Hemoglobin 14.2 g/dL (13.5-17.5); Mean Corpuscular Hemoglobin 29.2 pg (28.0-32.0); Mean Corpuscular Volume 86.0 fL (80.0-100.0); Nucleated Red Blood Cells % 0.1 %
--- NOTE | 2025-03-12 03:45 | ED.PDOC ---
GI ASSESSMENT HPI Comments 39-year-old male with a past medical history of eczema and psoriasis (not taking any medication), and no significant past surgical history has come to the ER with chief complaints of abdominal pain followed by chest pain. Patient reports that he woke up 5 hours ago due to acute right upper quadrant abdominal pain, dull in nature, constant, nonradiating, 10/10 in intensity, with no aggravating or relieving factors, associated with nausea, 7-8 episodes of yellow-brown, nonbloody emesis, subjective fever and chills. He reports a few minutes later he felt a dull pain on his left chest, with the same intensity, nonradiating, present on palpation. Patient denies any GERD symptoms, palpitations, dizzine ss, diaphoresis, shortness of breath, any food that could have triggered the pain, recent sick contacts, recent travel history, urinary symptoms in his last bowel movement was today which was normal. On inquiry, patient admits that he had a couple of joints of marijuana yesterday evening. On initial assessment, blood pressure is slightly elevated at 169/107 mmHg, patient denies hypertension in the past. He is he A&O x4, in severe distress. Attestation note: Dr. Alonzo: I was the supervising attending for this ED encounter. Please see the resident's notes. I was available for questions and consultations. Differential diagnosis: MDM: MDM: patient presented with the above HPI.--abdominal pain nausea and vomiting----workup was initiated. patient was found with the above mentioned diagnosis. the following medications were ordered: please refer to order lists of meds and tests obtained by myself Dr. Alonzo. Patient ED course and VS have been stabilized. Patient has been reassessed in the ED and remained in a stable condition. Pertinent incidental findings were discussed with the patient and/or family. Patient/family voices understanding and is agreeable with plan. Patient has been observed in the ED adequate length of time to insure im provement/stability. Escalation of care considered: Consideration of escalation to observation or admission Patient's symptoms resolved here in the ED after intervention. Patient refused Carafate and lidocaine viscous. Patient was unable to provide us with a urine sample. Patient has a history of marijuana abuse and this is likely the underlying etiology. All imaging studies obtained today were unremarkable. Patient was DISCHARGED home in a stable condition. All the reports of any imaging studies that were ordered by myself were reviewed by myself. Chief Complaint: Abdominal Pain Time Seen by MD: 03:22 Primary Care Provider: LORENA Whitehead Notes: Medications, Allergies Allergies: Coded Allergies: NO KNOWN ALLERGIES (Unverified , 07/10/24) Home Meds Active Scripts Naproxen (Naproxen) 500 Mg Tab, 500 MG PO BID, #30 TAB Prov:BIANCA SALMERON 03/11/25 Methylprednisolone (Medrol Dosepak) 4 Mg Usman, 4 MG PO UD, #21 TAB UAD Prov:BIANCA SALMERON 03/11/25 Triamcinolone Acetonide (Triamcinolone Acetonide) 0.1 % Oin, 1 APPLIC TOP BID, #80 GRAMS Prov:BIANCA SALMERON 03/11/25 Cephalexin Monohydrate (Cephalexin) 500 Mg Cap, 1 CAP PO TID, #30 CAP Prov:BIANCA SALMERON 03/11/25 Sumatriptan Succinate (Imitrex) 50 Mg Tab, 1 TAB PO BID, #20 TAB Prov:BIANCA SALMERON 12/17/24 Tobramycin Sulfate (Tobrex) [address], 2 DROP OP QID, #5 ML Prov:BIANCA SALMERON 12/17/24 Cephalexin Monohydrate (Cephalexin) 500 Mg Cap, 1 CAP PO QID, #32 CAP Prov:BIANCA SALMERON 12/17/24 Information Source: Patient Mode of Arrival: EMS Timing: Hours Duration: Since onset Prehospital treatment: None Quality: None (Dull ache) Vomitus: Bilious, Food Particles, Watery Stool: Normal Severity: Severe Recent: Other (Smoked marijuana) Recent Hx of: None Pain Location: RLQ Modifying Factors: Nothing Associated sign and symptoms: Nausea, Vomiting Past Medical History Past Medical History (Other): Psoriasis, eczema Surgical History: Denies all surgeries Family History Family History: Reviewed,noncontributory to illness, Family hx of Cancer Social History Smoker: Cigarettes, Less Than 1 Pack/Day Alcohol: Heavy Drugs: Marijuana Lives In: Home Constitutional: reports: chills, fever; denies: diaphoresis, fatigue, malaise, sweats, weakness, others EENTM: denies: blurred vision, double vision, ear bleeding, ear discharge, ear drainage, ear pain, ear ringing, eye pain, eye redness, hearing loss, mouth pain, mouth swelling, nasal discharge, nose bleeding, nose congestion, nose pain, photophobia, tearing, throat pain, throat swelling, voice changes, others Respiratory: denies: cough, hemoptysis, orthopnea, SOB at rest, shortness of breath, SOB with excertion, stridor, wheezing, others Cardiovascular: reports: chest pain; denies: dizzy spells, diaphoresis, Dyspnea on exertion, edema, irregular heart beat, left arm pain, lightheadedness, palpitations, PND, syncope, others Gastrointestinal: reports: abdominal pain, nausea, vomiting; denies: abdomen distended, blood streaked bowels, constipated, diarrhea, dysphagia, difficulty swallowing, hematemesis, melena, poor appetite, poor fluid intake, rectal bleeding, rectal pain, others Genitourinary: denies: burning, dysuria, flank pain, frequency, hematuria, incontinence, penile discharge, penile sore, pain, testicle pain, testicle swelling, urgency, others Neurological: denies: dizziness, fainting, headache, left sided numbness, left sided weakness, numbness, paresthesia, pre-existing deficit, right sided numbness, right sided weakness, seizure, speech problems, tingling, tremors, weakness, others Musculoskeletal: denies: back pain, gout, joint pain, joint swelling, muscle pain, muscle stiffness, neck pain, others Integumetry: reports: rash, others (Psoriatic rash all over the body); denies: bruises, change in color, change in hair/nails, dryness, laceration, lesions, lumps, wounds Allergic/Immunocompromised: denies: Difficulty Healing, Frequent Infections, Hives, Itching, others Hematologic/Lymphatic: denies: anemia, blood clots, easy bleeding, easy bruising, swollen glands, others Endocrine: denies: excessive hunger, excessive sweating, excessive thirst, excessive urination, flushing, intolerance to cold, intolerance to heat, unexplained weight gain, unexplained weight loss, others Psychiatric: denies: anxiety, bipolar disorder, depression, hopeless, panic disorder, schizophrenia, sleepless, suicidal, others Physical Exam General Appearance: Severe Distress HEENT: Other (Patient maintains eye contact, Absence of icterus, pallor, no enlarged lymph nodes palpated) Neck: Full Range of Motion, Other (No accessory muscles of respiration used, no masses felt, no JVD) Respiratory: No Accessory Muscle Use, No Respiratory Distress, Other (Absence of wheezing, stridor, rhonchi) Cardiovascular: No JVD, No Murmur, Regular Rate/Rhythm Breast Exam: Deferred Gastrointestinal: Epigastric, RUQ, Tenderness, Other (No organomegaly, no mass es palpated, no guarding, rebound tenderness present, no suprapubic tenderness) Genitalia: Deferred Pelvic: Deferred Rectal: Deferred Extremities: No calf tenderness, Normal range of motion, No pedal edema Neurologic: Alert, Other (No facial droop, irritable mood,) Cerebellar Function: Unable to Test Reflexes: Normal Skin: Rash, Other (Presence of dark brown, scaly psoriatic rash present on extensor surface of legs, arms and knuckles (patient unwilling for body to be inspected)) Lymphatic: Other (No cervical lymphadenopathy) Was a procedure done? Was a procedure done?: No GI differential Dx Differential Diagnosis: Cholangitis, Cholecystitis, Gastritis/PUD, Gastroenteritis, Hepatitis, Food Poisoning, Other (DDX INCLUDE BUT NOT LIMITED TO DIVERTICULITIS, COLITIS, GASTROENTERITIS, ACUTE ABDOMEN, SBO, ENTERITIS, CONSTIPATION, VOLVULUS, APPENDICITIS, GALLBLADDER DISEASE, CHOLEDOCOLITHIASIS, ASCENDING CHOLANGITIS, PANCREATITIS, INTRAABDOMINAL MASS/NEOPLASM, HEPATITIS, UTI, PYLONEPHRITIS, KIDNEY STONE, ANEURYSM, DISSECTION, INFLAMMATORY BOWEL DISEASE, GASTROPARESIS, ISCHEMIC BOWEL.FOOD POISONING, BACTERIAL/PARASITIC/VIRAL ETIOLOGY, TRAUMA, DIABETES DKA,) Other Differential Diagnosis Marijuana abuse X-Ray, Labs, Meds, VS Vital Signs Date Time Temp Pulse Resp B/P (MAP) Pulse Ox O2 Delivery O2 Flow Rate FiO2 03/12/25 05:54 155/110 03/12/25 05:39 65 03/12/25 04:47 97.7 70 22 155/110 (125) 99 97.7 03/12/25 01:58 98.3 79 18 169/107 99 98.3 Lab Test 03/12/25 05:30 03/12/25 04:09 03/12/25 03:05 Range/Units POC Glucose 155 H 70-106 mg/dl Troponin I High Sensitivity < 3 L < 3 L </=54 ng/L White Blood Count 6.3 4.4-10.8 10^3/uL Red Blood Count 4.88 4.5-5.90 10^6/uL Hemoglobin 14.2 13.5-17.5 g/dL Hematocrit 41.9 41.0-53.0 % Mean Corpuscular Volume 86.0 80.0-100.0 fL Mean Corpuscular Hemoglobin 29.2 28.0-32.0 pg Mean Corpuscular Hemoglobin Concent 33.9 32.0-36.0 g/dL Red Cell Distribution Width 14.4 H 11.8-14.3 % Platelet Count 241 140-450 10^3/uL Mean Platelet Volume 7.7 6.9-10.8 fL Neutrophils (%) (Auto) 82.9 H 37.0-80.0 % Lymphocytes (%) (Auto) 11.8 10.0-50.0 % Monocytes (%) (Auto) 5.2 0.0-12.0 % Eosinophils (%) (Auto) 0.0 0.0-7.0 % Basophils (%) (Auto) 0.1 0.0-2.0 % Neutrophils # (Auto) 5.2 1.6-8.6 10 ^3/uL Lymphocytes # (Auto) 0.7 0.4-5.4 10 ^3/uL Monocytes # (Auto) 0.3 0-1.3 10 ^3/uL Eosinophils # (Auto) 0 0-0.8 10 ^3/uL Basophils # (Auto) 0 0-0.2 10 ^3/uL Nucleated Red Blood Cells 0.1 % Sodium Level 141 136-145 mmol/L Potassium Level 4.4 3.5-5.1 mmol/L Chloride Level 104 98-107 mmol/L Carbon Dioxide Level 27 20-31 mmol/L Anion Gap 10 5-15 Blood Urea Nitrogen 9 9-23 mg/dL Creatinine 1.03 0.700-1.30 mg/dL Glomerular Filtration Rate Calc 95 >90 mL/min BUN/Creatinine Ratio 8.7 L 10.0-20.0 Serum Glucose 140 H 74-106 mg/dL Lactic Acid Level 1.7 0.4-2.0 mmol/L Calcium Level 10.0 8.7-10.4 mg/dL Total Bilirubin 0.5 0.2-1.0 mg/dL Aspartate Amino Transferase (AST) 41 H 13-40 U/L Alanine Aminotransferase (ALT) 32 7-40 U/L Alkaline Phosphatase 85 46-116 U/L Total Protein 7.8 5.7-8.2 g/dL Albumin 4.5 3.2-4.8 g/dL Lipase 48 12-53 U/L Current Medications Medications (Trade) Dose Ordered Sig/Tim Route Start Time Stop Time Status Last Admin Sodium Chloride 1,000 ml @ 1,000 mls/hr Q1H ONCE IV 03/12/25 04:30 03/12/25 05:29 DC 03/12/25 05:32 Ondansetron HCl (Zofran) 8 mg ONCE ONCE IV 03/12/25 04:30 03/12/25 04:32 DC 03/12/25 05:32 Fentanyl Citrate 100 mcg ONCE ONCE IV 03/12/25 05:45 03/12/25 05:46 DC 03/12/25 05:54 Pantoprazole Sodium (Protonix) 40 mg ONCE ONCE IV 03/12/25 05:45 03/12/25 05:46 DC 03/12/25 05:49 [place] [address] Ph: [phone] DIAGNOSTIC IMAGING Diagnostic Imaging Report : [id number] Signed PATIENT: HENRY MCCARTHY ACCT: [id number] UNIT: [id number] : 1985 LOC: ER ROOM / BED: / AGE / SEX: 39 / M ADM STATUS: REG ER SERVICE 0326 ORDERING PHYSICIAN: JUDD ALONZO DO PROCEDURE(s): ABPL - CT AB PEL WO CON-NO ORAL OR IV REASON: RUQ ORDER NUMBER(s): [id number], ACCESSION NUMBER(s): [id number] Exam: CT CT AB PEL WO CON-NO ORAL OR IV History: RUQ Comparison Study: CT CT AB PEL WO CON-NO ORAL OR IV on DOS: 09/22/24, CT CT AB PEL WO CON-NO ORAL OR IV on DOS: 07/10/24 TECHNIQUE: Multidetector CT of the abdomen and pelvis was performed from lung bases to pubic symphysis. Imaging was performed without IV contrast. Axial, coronal and sagittal multiplanar reformats were obtained from the axial data set by the technologist. Radiation optimization: All CT scans at this facility use at least one of these dose optimization techniques: automated exposure control mA and/or kV adjustment per patient size (includes targeted exams where dose is matched to clinical indication) or iterative reconstruction. Radiation Dose Information: CT Dose: Dose-length product is 295 mGy*cm FINDINGS: Evaluation of solid organs is limited due to lack of intravenous contrast use. Examination is limited secondary to lack of intra-abdominal fat. Imaged portions of the lung bases appear unremarkable. There is a small hiatal hernia. Liver, gallbladder, spleen, pancreas, adrenal glands, and kidneys appear unremarkable. No evidence of bowel obstruction or focal bowel wall thickening. Appendix appears normal. There is moderate intracolonic stool. No suspicious osseous lesion. IMPRESSION: 1. No acute abdominal or pelvic finding. ATED BY: NELI GARCIA MD DICTATED DATE/TIME: 03/12/25423 SIGNED BY: NELI GARCIA MD SIGNED DATE/TIME: 03/12/25423 CC: [place] [address] Ph: [phone] DIAGNOSTIC IMAGING Diagnostic Imaging Report : [id number] Signed PATIENT: HENRY MCCARTHY ACCT: [id number] UNIT: [id number] : 1985 LOC: ER ROOM / BED: / AGE / SEX: 39 / M ADM STATUS: REG ER SERVICE 0326 ORDERING PHYSICIAN: JUDD ALONZO DO PROCEDURE(s): ABDL - ABDOMEN LIMITED REASON: RUQ ORDER NUMBER(s): [id number], ACCESSION NUMBER(s): [id number] INDICATION: RUQ TECHNIQUE: Real time ultrasonography of the right upper quadrant was performed. COMPARISON: None FINDINGS: The liver demonstrates mildly increased echogenicity and estimated 15 cm. The gallbladder is without evidence of stone or sludge. cm. There is no intrahepatic or extrahepatic ductal dilatation. The common duct measures 3 mm. The gallbladder wall measures 1 mm. The right kidney measures 11.5 cm. The right kidney is normal in contour, size, and shape. The echogenicity is normal. There is no hydronephrosis. The visualized pancreas, intrahepatic IVC and abdominal aorta appears unremarkable. IMPRESSION: Mildly increased hepatic echogenicity can suggests fibrofatty hepatocellular disease, most commonly hepatic steatosis. ATED BY: NELI GARCIA MD DICTATED DATE/TIME: 03/12/25550 SIGNED BY: NELI GARCIA MD SIGNED DATE/TIME: 03/12/25550 CC: Images Reviewed?: Images reviewed and evaluated by me Time of 1ST Reevaluation: 05:25 Reevaluation 1ST: Unchanged Time of 2ND Reevaluation: 06:07 Reevaluation 2ND: Resolved Patient Education/Counseling: Diagnosis, Treatment Family Education/Counseling: No Family Present Comments Patient came in with RUQ and chest pain. CBC and BMP were wnl, lactic acid was normal 1.7, tropes were negative, lipase normal 48. EKG shows sinus rhythm. Patient was given 0.9% NS 1 L bolus, 8 mg IV ondansetron once, pantoprazole 40 mg IV once and IV fentanyl 100 mcg once for nausea and abdominal pain. Patient refused to take sucralfate 1g p.o. and lidocaine 2% [address] abdomen and pelvis showed 'No acute abdominal or pelvic finding' and ultrasound of the right upper quadrant was ordered which showed 'Mildly increased hepatic echogenicity can suggests fibrofatty hepatocellular disease, most commonly hepatic steatosis'. Patient was reassessed after medication and reported improvement of symptoms. He is stable and can be discharged. SEPSIS Sepsis Screen Date sepsis recognized/suspect: Mar 12, 2025 Time Sepsis recognized/suspect: 0158 Recent Procedure: No On Antibiotic Therapy: No Respiratory Rate >20: No Heart Rate >90: No Temp<36 C (96.8 F) or >38.3 C: No SBP <90 or MAP <65 mmHG: No New Acute Mental Status Change: No Is the patient on CPAP, BIPAP,: No Physician Orders Drug Screen (03/12/25 02:57) Urinalysis (03/12/25 02:57) Abdomen Limited (03/12/25 03:26) Ct Ab Pel Wo Con-No Oral Or Iv (03/12/25 03:26) Blood Alcohol (03/12/25 05:57) Vital Signs Date Time Temp Pulse Resp B/P (MAP) Pulse Ox O2 Delivery O2 Flow Rate FiO2 03/12/25 05:54 155/110 03/12/25 05:39 65 03/12/25 04:47 97.7 70 22 155/110 (125) 99 97.7 03/12/25 01:58 98.3 79 18 169/107 99 98.3 Laboratory Tests Test 03/12/25 03:05 Lactic Acid Level 1.7 mmol/L (0.4-2.0) White Blood Count 6.3 10^3/uL (4.4-10.8) Medications Medications Dose Ordered Sig/Tim Route Start Time Stop Time Status Last Admin Dose Admin Fentanyl Citrate 100 mcg ONCE ONCE IV 03/12/25 05:45 03/12/25 05:46 DC 03/12/25 05:54 Ondansetron HCl 8 mg ONCE ONCE IV 03/12/25 04:30 03/12/25 04:32 DC 03/12/25 05:32 Pantoprazole Sodium 40 mg ONCE ONCE IV 03/12/25 05:45 03/12/25 05:46 DC 03/12/25 05:49 Sodium Chloride 1,000 ml @ 1,000 mls/hr Q1H ONCE IV 03/12/25 04:30 03/12/25 05:29 DC 03/12/25 05:32 Departure 1 Departure Time of Disposition: 06:24 Impression: Primary Impression: Marijuana abuse Additional Impressions: Abdominal pain Vomiting Disposition: 01 HOME / SELF CARE / HOMELESS Condition: Stable Additional Instructions: Additional instructions: Please read all instructions provided in this packet carefully. You MUST follow-up with your primary care/family doctor in 1 to 2 days. If you are unable to see your primary care/family doctor, please return to our emergency room for re-assessment and re-evaluation in 1 to 2 days. Return to the emergency room here in our facility or to the nearest ER [facility] if your symptoms change or worsen. CONSULTATIONS: you MUST Follow-up for consultation as soon as possible with: -gastroenterology in 1-2 days. Please call for appointment You MUST call the consultants office yourself to make an appointment. You may need to arrange that through your insurance and/or your primary/family doctor. If you are unable to see the performance consultant in 1 to 2 days, you must return to our emergency room (or any other ER of your choice) for re-assessment and re- evaluation. Adequate fluid hydration. Although you have been discharged from the Emergency Department, this does not mean that you have a "clean bill of health". No definitive diagnosis for your symptoms has been made today. It is possible that you are in the process of developing a serious illness. This is why you must return to the ED without fail if any new or worsening symptoms develop. Avoid fatty greasy spicy food. Avoid caffeinated products. Avoid NSAIDs. AVOID MARIJUANA Below is a copy of your radiological report for follow up: [place] [address] Ph: [phone] DIAGNOSTIC IMAGING Diagnostic Imaging Report : [id number] Signed PATIENT: HENRY MCCARTHY ACCT: [id number] UNIT: [id number] : 1985 LOC: ER ROOM / BED: / AGE / SEX: 39 / M ADM STATUS: REG ER SERVICE 032 ORDERING PHYSICIAN: JUDD ALONZO DO PROCEDURE(s): ABDL - ABDOMEN LIMITED REASON: RUQ ORDER NUMBER(s): [id number], ACCESSION NUMBER(s): [id number] INDICATION: RUQ TECHNIQUE: Real time ultrasonography of the right upper quadrant was performed. COMPARISON: None FINDINGS: The liver demonstrates mildly increased echogenicity and estimated 15 cm. The gallbladder is without evidence of stone or sludge. cm. There is no intrahepatic or extrahepatic ductal dilatation. The common duct measures 3 mm. The gallbladder wall measures 1 mm. The right kidney measures 11.5 cm. The right kidney is normal in contour, size, and shape. The echogenicity is normal. There is no hydronephrosis. The visualized pancreas, intrahepatic IVC and abdominal aorta appears unremarkable. IMPRESSION: Mildly increased hepatic echogenicity can suggests fibrofatty hepatocellular disease, most commonly hepatic steatosis. ATED BY: NELI GARCIA MD DICTATED DATE/TIME: 03/12/25550 SIGNED BY: NELI GARCIA MD SIGNED DATE/TIME: 03/12/25550 CC: [place] [address] Ph: [phone] DIAGNOSTIC IMAGING Diagnostic Imaging Report : [id number] Signed PATIENT: HENRY MCCARTHY ACCT: [id number] UNIT: [id number] : 1985 LOC: ER ROOM / BED: / AGE / SEX: 39 / M ADM STATUS: REG ER SERVICE 0326 ORDERING PHYSICIAN: JUDD ALONZO DO PROCEDURE(s): ABPL - CT AB PEL WO CON-NO ORAL OR IV REASON: RUQ ORDER NUMBER(s): [id number], ACCESSION NUMBER(s): [id number] Exam: CT CT AB PEL WO CON-NO ORAL OR IV History: RUQ Comparison Study: CT CT AB PEL WO CON-NO ORAL OR IV on DOS: 09/22/24, CT CT AB PEL WO CON-NO ORAL OR IV on DOS: 07/10/24 TECHNIQUE: Multidetector CT of the abdomen and pelvis was performed from lung bases to pubic symphysis. Imaging was performed without IV contrast. Axial, coronal and sagittal multiplanar reformats were obtained from the axial data set by the technologist. Radiation optimization: All CT scans at this facility use at least one of these dose optimization techniques: automated exposure control mA and/or kV adjustme nt per patient size (includes targeted exams where dose is matched to clinical indication) or iterative reconstruction. Radiation Dose Information: CT Dose: Dose-length product is 295 mGy*cm FINDINGS: Evaluation of solid organs is limited due to lack of intravenous contrast use. Examination is limited secondary to lack of intra-abdominal fat. Imaged portions of the lung bases appear unremarkable. There is a small hiatal hernia. Liver, gallbladder, spleen, pancreas, adrenal glands, and kidneys appear unremarkable. No evidence of bowel obstruction or focal bowel wall thickening. Appendix appears normal. There is moderate intracolonic stool. No suspicious osseous lesion. IMPRESSION: 1. No acute abdominal or pelvic finding. ATED BY: NELI GARCIA MD DICTATED DATE/TIME: 03/12/25423 SIGNED BY: NELI GARCIA MD SIGNED DATE/TIME: 03/12/25423 CC: e-Prescriptions Ondansetron Odt 4MG Tab (ZOFRAN PO) 4 Mg Tb 4 MG PO Q8HPRN PRN for 3 Days, #9 TAB ODT TAB-DISSOLVE IN MOUTH, THEN SWALLOW Prov: JUDD ALONZO DO 03/12/25 Discharged With: Self Critical Care Note Critical Care Time?: No Stability Stability form required: No Heart Score Heart Score: Heart Score Response (Comments) Value History Slightly Suspicious 0 EKG Normal 0 Age <45 0 Risk Factors No known risk factors 0 Troponin Normal limit 0 Total 0 I personally scribed for JUDD ALONZO DO ([email or web address]) on 03/12/25 at 05:59. E lectronically submitted by Charlie Jama ([facility]). FAZAL DASILVA RESIDENT Mar 12, 2025 03:44 JUDD ALONZO DO Mar 12, 2025 04:28
[2025-03-12 03:57] LABS: Alanine Aminotransferase 32 U/L (7-40); Albumin 4.5 g/dL (3.2-4.8); Alkaline Phosphatase 85 U/L (46-116); Anion Gap 10 (5-15); BUN/Creatinine Ratio 8.7 (10.0-20.0); Calcium 10.0 mg/dL (8.7-10.4); Carbon Dioxide 27 mmol/L (20-31); Chloride 104 mmol/L (98-107); Lipase 48 U/L (12-53); Potassium 4.4 mmol/L (3.5-5.1); Sodium 141 mmol/L (136-145); Total Protein 7.8 g/dL (5.7-8.2)
[2025-03-12 03:58] LABS: Bilirubin, Total 0.5 mg/dL (0.2-1.0)
[2025-03-12 04:02] LABS: Blood Urea Nitrogen 9 mg/dL (9-23); Glucose 140 mg/dL (74-106)
--- NOTE | 2025-03-12 04:25 | DVH ---
Exam: CT CT AB PEL WO CON-NO ORAL OR IV History: RUQ Comparison Study: CT CT AB PEL WO CON-NO ORAL OR IV on DOS: 09/22/24, CT CT AB PEL WO CON-NO ORAL OR IV on DOS: 07/10/24 TECHNIQUE: Multidetector CT of the abdomen and pelvis was performed from lung bases to pubic symphysis. Imaging was performed without IV contrast. Axial, coronal and sagittal multiplanar reformats were obtained from the axial data set by the technologist. Radiation optimization: All CT scans at this facility use at least one of these dose optimization techniques: automated exposure control mA and/or kV adjustment per patient size (includes targeted exams where dose is matched to clinical indication) or iterative reconstruction. Radiation Dose Information: CT Dose: Dose-length product is 295 mGy*cm FINDINGS: Evaluation of solid organs is limited due to lack of intravenous contrast use. Examination is limited secondary to lack of intra-abdominal fat. Imaged portions of the lung bases appear unremarkable. There is a small hiatal hernia. Liver, gallbladder, spleen, pancreas, adrenal glands, and kidneys appear unremarkable. No evidence of bowel obstruction or focal bowel wall thickening. Appendix appears normal. There is moderate intracolonic stool. No suspicious osseous lesion. IMPRESSION: 1. No acute abdominal or pelvic finding.
[2025-03-12] MEDS: PANTOPRAZOLE 40 MG TAB PO ONE (04:30)
[2025-03-12 04:47] VITALS: RESP 22; TEMP 97.7; O2SAT 99
[2025-03-12] MEDS ORDERED: ONDANSETRON HCL 4 MG/2 ML VIAL ONE (05:00)
[2025-03-12] MEDS ORDERED: LIDOCAINE VISCOUS 2% 15ML UD ONE (05:03)
[2025-03-12] MEDS ORDERED: PANTOPRAZOLE 40 MG/10 ML VIAL INJ IV ONE (05:03)
[2025-03-12] MEDS ORDERED: SUCRALFATE 1 GM TAB PO ONE (05:04)
[2025-03-12] MEDS: SUCRALFATE 1 GM TAB PO ONE (05:19)
[2025-03-12] MEDS: LIDOCAINE VISCOUS 2% 15ML UD PO ONE (05:19)
[2025-03-12] MEDS: SODIUM CHLORIDE 0.9% 1,000 ML IV ONE (05:32)
[2025-03-12] MEDS: ONDANSETRON HCL 4 MG/2 ML VIAL IV ONE (05:32)
[2025-03-12] MEDS ORDERED: fentaNYL CITRATE 100 MCG/2 ML VL ONE (05:48)
[2025-03-12] MEDS: PANTOPRAZOLE 40 MG/10 ML VIAL INJ IV ONE (05:49)
--- NOTE | 2025-03-12 05:52 | DVH ---
INDICATION: RUQ TECHNIQUE: Real time ultrasonography of the right upper quadrant was performed. COMPARISON: None FINDINGS: The liver demonstrates mildly increased echogenicity and estimated 15 cm. The gallbladder is without evidence of stone or sludge. cm. There is no intrahepatic or extrahepatic ductal dilatation. The common duct measures 3 mm. The gallbladder wall measures 1 mm. The right kidney measures 11.5 cm. The right kidney is normal in contour, size, and shape. The echogenicity is normal. There is no hydronephrosis. The visualized pancreas, intrahepatic IVC and abdominal aorta appears unremarkable. IMPRESSION: Mildly increased hepatic echogenicity can suggests fibrofatty hepatocellular disease, most commonly hepatic steatosis.
[2025-03-12 05:54] VITALS: BP 163/105; PULSE 65
[2025-03-12] MEDS: fentaNYL CITRATE 100 MCG/2 ML VL IV ONE (05:54)
--- NOTE | 2025-03-12 06:15 | ECG ---
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
[2025-03-12] MEDS ORDERED: ZOFR4T PO (06:36)
== END 2025-03-12 06:43 | disposition home or self-care (01) ==
LOC: EDUNIT# 01:58 → ER 01:58 → EDBD 01:58 → ER 06:43
DX: F12.10 Cannabis abuse, uncomplicated (principal); R10.11 Right upper quadrant pain; R11.2 Nausea with vomiting, unspecified; F17.210 Nicotine dependence, cigarettes, uncomplicated; Z98.890 Other specified postprocedural states
CPT/HCPCS: 36415; 74176; 76705; 80053; 82947; 83605; 83690; 84484; 85025; 93005; 96361; 96374; 96375; 99285; J2405; J2470; J3010; J7030; 82962